=== PATIENT | female | born 1950 | race Caucasian/White ===

== ENCOUNTER → 2018-03-21 09:27 | Outpatient (CLI) | payer MEDICARE, OTHER, SELFPAY ==
[2018-03-21 10:24] LABS: Alanine Aminotransferase 23 IU/L (9-52); Albumin 4.2 g/dL (3.5-5.0); Albumin Globulin Ratio 1.8 (1.0-2.8); Alkaline Phosphatase 45 U/L (38-126); Aspartate Aminotransferase 18 IU/L (14-36); BUN Creatinine Ratio 28.3 (6-22); Bilirubin Total 0.3 mg/dL (0.2-1.3); Blood Urea Nitrogen 17 mg/dL (7-17); Calcium 9.8 mg/dL (8.4-10.2); Carbon Dioxide 34 mmol/L (22-32); Chloride 101 mmol/L (98-107); Estimated Glomerular Filt Rate > 60.0 mL/min (>60); Globulin 2.4 g/dL (1.7-4.1); Glucose 88 mg/dL (80-110); HEMOLYSIS < 15 (0-50); Phosphorous 3.8 mg/dL (2.8-4.1); Potassium 4.5 mmol/L (3.4-5.1); Sodium 141 mmol/L (137-145); Total Protein 6.6 g/dL (6.3-8.2)
== END ==
PROVIDERS: Family Provider Family Medicine; PCP Family Medicine; Visit Provider Internal Medicine
DX: E83.49 Other disorders of magnesium metabolism (principal); Z51.81 Encounter for therapeutic drug level monitoring
CPT/HCPCS: 36415; 80053; 83735; 84100

== ENCOUNTER → 2018-03-29 08:50 | Outpatient (CLI) | payer MEDICARE, OTHER, SELFPAY ==
--- NOTE | 2018-03-29 08:54 | DI.RAD.S_ITS ---
PROCEDURE: XR HIP W PEL IF DONE RT 2V INDICATIONS: Unspecified fall TECHNIQUE: AP pelvis with lateral view(s) of the right hip(s). COMPARISON: None. FINDINGS: Bones: No fractures or dislocations but there is moderately severe degenerative joint osteoarthritis on the right and only minimal such degeneration of the left. Pelvic ring appears intact. No suspicious bony lesions. Soft tissues: The visualized bowel gas pattern is normal. No suspicious soft tissue calcifications. IMPRESSION: Moderately severe right hip osteoarthritis, with near fyva-[id number]-[id number] articulation but only minimal degeneration is seen on the left. No acute trauma found. Dictated by: Godfrey Cameron M.D. on 03/29/2018 at 9:11 Approved by: Godfrey Cameron M.D. on 03/29/2018 at 9:13
== END ==
PROVIDERS: Family Provider Family Medicine; PCP Family Medicine; Visit Provider Physician Assistant
DX: M16.11 Unilateral primary osteoarthritis, right hip (principal)
CPT/HCPCS: 73502

== ENCOUNTER → 2018-05-04 10:03 | Outpatient (CLI) | payer MEDICARE, OTHER, SELFPAY ==
[2018-05-04 10:25] LABS: RBC Urine None Seen (0-5/HPF)
[2018-05-04 11:24] LABS: Add Manual Diff / Slide Review NO; Basophils Percent Auto 1.3 % (0-2); Eosinophils Percent Auto 3.1 % (2-4); Hematocrit 39.1 % (36-46); Hemoglobin 13.2 g/dL (12.0-16.0); Lymphocytes Percent Auto 18.4 % (25-40); Mean Corpuscular HGB Conc 33.9 % (30-36); Mean Corpuscular Hemoglobin 30.8 PG (26-34); Mean Corpuscular Volume 90.9 fL (80-100); Neutrophils Absolute Auto 3800 /uL (3000-5900); Neutrophils Percent Auto 69.2 % (50-75); Platelet Count 198 X10^3/uL (150-400); Red Blood Cell Count 4.29 X10^6/uL (4.0-5.2); Red Cell Distribution Width 12.5 % (11.6-14.8); White Blood Cell Count 5.5 X10^3/uL (4.5-11.0)
[2018-05-04 11:32] LABS: Hemoglobin A1C% w Est Avg Glu 5.2 % (4.0-6.0)
[2018-05-04 11:34] LABS: Appearance Urine UA CLEAR; Bilirubin Urine UA NEGATIVE (NEGATIVE); Color Urine UA YELLOW; Glucose Urine UA NEGATIVE (Normal); Ketones Urine UA NEGATIVE (NEGATIVE); Leukocyte Esterase Urine UA 1+ (NEGATIVE); Nitrite Urine UA Negative (Negative); Occult Blood Urine UA NEGATIVE (Negative); Protein Urine UA NEGATIVE (Negative); Urobilinogen Urine UA 0.2 E.U./dL (0.2); pH Urine UA 6.5 (4.5-8.0)
[2018-05-04 11:42] LABS: BUN Creatinine Ratio 17.1 (6-22); Blood Urea Nitrogen 12 mg/dL (7-17); Calcium 9.4 mg/dL (8.4-10.2); Carbon Dioxide 33 mmol/L (22-32); Chloride 102 mmol/L (98-107); Estimated Glomerular Filt Rate > 60.0 mL/min (>60); Glucose 79 mg/dL (80-110); HEMOLYSIS < 15 (0-50); Potassium 3.9 mmol/L (3.4-5.1); Sodium 144 mmol/L (137-145)
[2018-05-04 12:02] LABS: Bacteria Urine Many (>30); Squamous Epithelial Cell Urine 1-5 /HPF; WBC Urine 30-100/HPF (0-5/HPF)
[2018-05-04 12:03] LABS: Culture Indicated Urine Specimen Cultured; Mucus Urine 1+ (Negative)
== END ==
PROVIDERS: PCP Family Medicine; Visit Provider Orthopaedic Surgery
DX: Z01.818 Encounter for other preprocedural examination (principal); Z01.812 Encounter for preprocedural laboratory examination; N39.0 Urinary tract infection, site not specified; R73.09 Other abnormal glucose; I10 Essential (primary) hypertension
CPT/HCPCS: 36415; 80048; 81001; 83036; 85025; 87077; 87086; 87186; 93005; 93010

== ENCOUNTER 2018-06-08 05:42 | Inpatient (IN) | payer MEDICARE, OTHER, SELFPAY ==
[2018-05-25 10:46] VITALS: BMI 20.1
[2018-06-08] VITALS (15 sets, daily range): BP systolic 99–142; BP diastolic 43–79; PULSE 71–104; RESP 14–18; TEMP 35.9–37; O2SAT 99–100; BMI 20.1
--- NOTE | 2018-06-08 | DI.RAD.S_ITS ---
PROCEDURE: XR HIP W PEL IF DONE RT 2V INDICATIONS: TOTAL RIGHT HIP TECHNIQUE: AP pelvis and lateral view of the right hip acquired. COMPARISON: [facility], CR, XR HIP W PEL IF DONE RT 2V, 03/29/2018, 8:34. [facility], CR, XR HIP RT 1V, 06/08/2018, 8:23. FINDINGS: Bones: Patient is status post right hip arthroplasty, with hardware components in expected positions. The hip joint appears congruent. The visualized bony structures appear intact. Soft tissues: Overlying postoperative changes are noted. No suspicious soft tissue densities. Pelvic phleboliths are incidentally noted. IMPRESSION: Normal postoperative examination. Dictated by: Hebert Hernandez M.D. on 06/08/2018 at 11:07 Approved by: Hebert Hernandez M.D. on 06/08/2018 at 11:07
--- NOTE | 2018-06-08 06:00 | DI.RAD.S_ITS ---
PROCEDURE: XR HIP RT 1V INDICATIONS: prosthesis placement FINDINGS: 1 limited intraoperative fluoroscopically stored images of the right hip was obtained for intraoperative hardware localization purposes. This image is not meant for diagnostic purposes. Intraoperative findings related to a total right hip arthroplasty are present. IMPRESSION: Intraoperative image obtained during the patient's total right hip arthroplasty. Dictated by: Florin Paris M.D. on 06/08/2018 at 10:26 Approved by: Florin Paris M.D. on 06/08/2018 at 10:27
[2018-06-08] MEDS: LACTATED RINGERS 1,000 ML 42 ML IV ×2 (06:50→11:52)
[2018-06-08] MEDS: VANCOMYCIN 1,000 MG/200 ML FROZ.PIGGY 200 MG IV (06:55)
[2018-06-08] MEDS: ACETAMINOPHEN 325 MG TABLET 975 MG PO ×3 (07:39→20:33)
[2018-06-08] MEDS: MELOXICAM 7.5 MG TABLET 15 MG PO (07:40)
[2018-06-08] MEDS: PREGABALIN 75 MG CAPSULE PO (07:40)
--- NOTE | 2018-06-08 07:51 | PM.PREOP ---
Pre-operative Note Interval Note Pre-op Check: Yes History & Physical Reviewed by Physician Changes: No
--- NOTE | 2018-06-08 07:52 | PM.OP.1 ---
Operative Date/Time/Diagnoses Date of procedure: 06/08/18 Time of procedure: 09:52 Pre-op diagnosis: right hip OA Post-op diagnosis: same Procedure & Clinicians Procedure: right total hip arthroplasty Same procedure as scheduled: Yes Indications: The patient has had progressively worsening right hip pain with radiographic changes consistent with arthritis. Non-operative management has failed and the patient has requested total hip replacement. The risks, benefits and alternatives to surgery were discussed with the patient prior to proceeding. Risks discussed included, but were not limited to, failure to relieve pain, leg length discrepancy, dislocation, stiffness, infection, nerve damage, deep venous thrombosis, pulmonary embolism, stroke, coma, heart attack, permanent paralysis and , as well as the potential need for eventual revision of the prosthetic. Surgeon: Keily Garcia [employer] Technician: Godfrey Stein Click Yes if Unassisted: No Anesthesia Type: General and Spinal Operative Notes Findings: severe right hip OA, adequate stability Closure Type: primary Specimen(s): none sent Implants & Drains: A [employer] R3 52 cup R3, -3 x36 head, 36 x 52 neutral poly liner, anthology size 6 standard offset, 1 screw x 20mm Applied: catheter Estimated Blood Loss (mL): 250 Blood products transfused: none Procedure in detail: The patient was brought to the operating room. Patient was carefully positioned in the supine position. Time-out was performed and antibiotics were given. Anesthesia was induced. She was positioned in the on the table in order to allow hyperextension of the hip. Bilateral lower extremities were prepped and draped in a standard sterile fashion. An anterior right hip incision was made 1 fingerbreadth lateral to the anterior superior iliac spine and extended distally towards the greater trochanter. Dissection was carried out through skin and subcutaneous tissues. The skin and subcutaneous tissues were carefully injected with Lidocaine with epi. Superficial hemostasis was achieved. The fascia over the tensor fascia barry was defined and incised with a knife. Two Allis clamps were used to grasp the fascia. Tensor fascia barry was retracted laterally. A gelpi retractor was placed. Dissection was carried out down along the neck. The circumflex vessels were carefully identified and cauterized with the Aqua Mantis. There was good visualization of the femoral neck. A Cobra was placed superior to the neck and the gluteus fibers were carefully stripped from that superior aspect of the capsule. A 2nd retractor was placed along the inferior aspect of the neck. The rectus insertion along the capsule was partially released. A 3rd retractor that was then gently placed over the rim of the acetabulum under the rectus. Capsule was carefully incised and released from the intertrochanteric line circumferentially superior to the mid sagittal line and inferiorly to the mid sagittal line until the lesser trochanter was palpable. A tag stitch was placed both in the superior and inferior limb of the capsular insertion. Along the acetabulum capsule was also released up to the mid sagittal 12:00 position. A portion of the labrum was resected. A saw was used to perform an osteotomy at the level of the intertrochanteric line and the junction of the superior femoral neck leaving approximately 1 finger breath of residual inferior neck above the lesser trochanter. A 2nd cut was made along the femoral neck at the base of the head and a napkin ring of neck was removed. Corkscrew was placed in the femoral head and the head was removed without difficulty. Retractors were then repositioned around the acetabulum. Residual labrum was resected and additional osteophytes were removed. A reamer that was 4 mm below the templated size was placed by hand in the acetabulum and it was reamed to centralize the acetabulum. It was then reamed up to 2 under the templated size and fluoroscopy was brought in to confirm the position of the reaming and depth of reaming. I reamed 1 under the anticipated size and touched the rim with line to line reaming. A trial cup was placed and noted that it was appropriately sized and fluoroscopy confirmed position and depth. The component was open and inserted without difficulty fluoroscopic imaging was used to confirm that the cup had been adequately seated and was well positioned. A single screw was placed for additional acetabular stability. Neutral poly trial liner was placed. The cup was tested and noted to be stable. Attention was then directed to the femur. The femur was gently hyperextended additional capsular release was performed as needed in order to allow adequate visualization of the proximal femur with elevation of the femur. Patient was placed in a hyperextended slightly abducted position with maximum external rotation. Box osteotome was used to check for any residual neck as well as sclerotic bone along the trochanter. Milano pepper was placed in the femur. Additional broaching was performed. Canal finder was used to determine the alignment of the canal and position. Size 1 broach was placed. The canal was then appropriately broached up to the templated size as long as there was adequate stability of the broach and serial advancement of the broach without excessive impingement. Specific attention was directed at avoiding varus attempting to direct the distal aspect of the broach more anteriorly and avoiding excessive anteversion. Trial reduction showed acceptable range of motion, good stability, no posterior impingement, bahai of leg length and appropriate lateral shuck. I also hyperflexed the hip and checked that there was no impingement anteriorly and there was good stability with flexion, abduction and internal rotation. Final neutral poly was placed without difficulty. Marcaine and Exparel were injected.. The stem was placed without difficulty. Repeat trial reduction and x-ray showed acceptable overall position, length, and no evidence of the femoral fracture. Final head was placed. Wound was meticulously irrigated with normal saline. The hip was reduced and additional Exparel and Marcaine were injected. The capsule was closed with interrupted nonabsorbable sutures. The fascia of the tensor was closed with interrupted and running Vicryl. No drain was placed. Any tensor fascia barry muscle that appeared to be contused or injured which was a minimal amount was carefully resected. Capsule around the tensor was injected with Exparel and Marcaine. The skin was closed with barbed stitches for the subcutaneous tissue and skin. We also used surgical glue. The wound was dressed sterilely. Brief Betadine soak was also used and was meticulously irrigated with normal saline. Patient was transferred to recovery room in satisfactory condition. Complications: none Condition: stable Disposition: Acute Care Plan for aftercare: The patient will be maintained on a standard total hip replacement protocol with weight bearing as tolerated and anterior hip precautions. The patient will receive Aspirin and sequential compression devices for DVT prophylaxis. The patient will be discharged home when safe for the home environment.
[2018-06-08] MEDS: CEFAZOLIN 2 GM/100 ML FROZ.PIGGY IV ×3 (08:10→23:32)
--- NOTE | 2018-06-08 08:49 | SUR.OPER ---
Supine, head on pillow, torso on pink pad positioner. Iliac crest at flex of foot end of table. Gel roll under operative hip. Both arms secured on arm boards <90 degrees abduction.
[2018-06-08] MEDS: BUPIVACAINE LIPOSOME 266 MG/20 ML VIAL INJ (09:01)
[2018-06-08] MEDS: BUPIVACAINE 0.25% W/ EPI VIAL 50 ML INJ (09:01)
[2018-06-08] MEDS: POVIDONE-IODINE 15 ML, SODIUM CHLORIDE 0.9% 250 ML TOP (09:02)
[2018-06-08] MEDS: LIDOCAINE 1% W/EPI INJ 15 ML INJ (09:07)
--- NOTE | 2018-06-08 12:03 | SUR.PHASEI ---
pt transfered to icu as floor care pt in stable condition. pt alert and talking to rn. pt family at bedside upon arrival to room. bedside report given to BENITO Mark. Transfered care of pt to Benito Mark at that time.
[2018-06-08] MEDS: LACTATED RINGERS 1,000 ML 125 ML IV ×2 (13:19→22:27)
[2018-06-08] MEDS: OXYCODONE IR 5 MG TABLET PO (14:32)
--- NOTE | 2018-06-08 14:35 | PC.ADMIT ---
[id number] [place] [address] Admission Note: The patient,Jacinta Arteaga,68 y/o, was given written information regarding hospital policies, unit procedures and contact persons. Patient's smoking status: Never smoker. Vital Signs - 8 hr 06/08/18 07:00 06/08/18 11:20 06/08/18 11:25 Temperature 98.2 F 97.8 F Pulse Rate 71 84 89 Respiratory Rate 16 17 18 Blood Pressure 139/75 104/67 110/57 L Pulse Oximetry 99 99 100 06/08/18 11:30 06/08/18 11:35 06/08/18 11:40 Temperature 97.1 F L Pulse Rate 79 75 78 Respiratory Rate 15 14 14 Blood Pressure 110/57 L 106/60 106/66 Pulse Oximetry 100 100 100 06/08/18 11:45 06/08/18 11:50 06/08/18 12:08 Temperature 97.4 F L 97.4 F L 96.6 F L Pulse Rate 73 72 78 Respiratory Rate 14 17 14 Blood Pressure 111/64 111/60 121/49 L Pulse Oximetry 100 100 100 06/08/18 12:09 06/08/18 12:44 06/08/18 13:13 Temperature 96.6 F L 97.6 F Pulse Rate 73 90 104 H Respiratory Rate 14 16 16 Blood Pressure 109/43 L 123/68 133/71 Pulse Oximetry 100 100 100 06/08/18 14:19 Temperature Pulse Rate 81 Respiratory Rate 18 Blood Pressure 142/79 H Pulse Oximetry 100 Rec'd pt from PACU to rm 102 at 1200. Pt is AAO x3 and making needs known. R hip dsg CDI. Denies pain. VSS. Oriented to room, unit, routine. Educated to fall risk, pain med regimen, use of call light. Family at bedside.
--- NOTE | 2018-06-08 16:04 | PT.IIE ---
Addendum entered and electronically signed by oMntse Wayne PT 06/08/18 18:12: This is to certify that I have reviewed this documentation and POC Original Note: Current Diagnoses Unilateral primary osteoarthritis, right hip (06/08/18) Surgery Performed Operation Date: 06/08/18 07:45 Actual Procedures p Right Total Hip Arthroplasty-Anterior Approach(Right) - Keily Garcia MD Surgical History (Last Updated 05/25/18 @ 11:17 by Nilsa Guerra RN) History of total abdominal hysterectomy and bilateral salpingo-oophorectomy (Acute) Hx of eye surgery (Acute) Status post extracapsular cataract extraction of left eye (Acute) History of surgery on arm (Resolved 09/2016) Hx of cornea transplant (Resolved 2001) History of lumpectomy Status post knee surgery Medical History (Last Updated 05/25/18 @ 11:13 by Nilsa Guerra RN) Normal colonoscopy (Acute) Osteoporosis (Acute) Seasonal allergies (Acute) Allergic rhinitis (Chronic) 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 Prior Functional Level (Other details) pt was previously independent in all mobilities and no AD. Social History Household Members none Living Arrangements House Number of Floors (Floors) One Floor Number of Stairs To Enter/Railing? 1 step with grab bar on L ascending to access through the garage. pt also states having 3 steps to enter front door but states she will not attempt those due to some safety concerns. Home Environment Walk in Shower Home Equipment Front Wheel Walker Straight Cane Raised Toilet Seat w/Armrests Shower Seat without Backrest Grab Bars In Shower Employment Status Retired Additional Social History Comment pt plans to go home with her mom and her friend marilia the first night (plan is tomorrow) home. Then her brother will be attending her for 2-3 nights, then she has arranged to have friends and neighbors come in/out. She states that she will have someone there 24hrs/day. M2 PT-IP Current Condition Start: 06/08/18 16:44 Freq: NEEDED Status: Active Protocol: Document 06/08/18 16:04 (Rec: 06/08/18 18:11 [email or web address]) Physical Therapy Current Condition Current Condition Evaluation Date 06/08/18 Treatment Diagnosis R DANIKA (anterior approach); Difficulty walking Onset Date 06/08/18 Precautions Anterior Hip Precautions No Hip Extension No Hip External Rotation Weight Bearing Status Weight Bearing Status Weight Bear as Tolerated M3 PT-IP Subjective Start: 06/08/18 16:44 Freq: NEEDED Status: Active Protocol: Document 06/08/18 16:04 (Rec: 06/08/18 18:11 [email or web address]) Subjective Physical Therapy Visit Type Type Initial Evaluation Visit Start Time 16:04 Visit Stop Time 16:37 Total Visit Minutes 33 Number of COPYRIGHT MANAGER Visits 0 Physical Therapy Visit Comments Patient Comments pt states having no pain at this time and is agreeable to attempt ambulating with PT. Therapy Pain Assessment Pain When Pain Assessed At Rest Pain Present Pain Present Denied Pain M4 PT-IP Mobility and Gait Start: 06/08/18 16:44 Freq: NEEDED Status: Active Protocol: Document 06/08/18 16:04 (Rec: 06/08/18 18:11 [email or web address]) PT-Bed Mobility Assessment Supine to Sit Supine to Sit Standby Assistance Scooting Scooting to Edge of Bed Standby Assistance PT-Transfer Assessment Sit to and From Stand Sit to and from Stand Contact Guard Assistance Use of Upper Extremities Equipment Transfer Assistive Device Gait Belt Front Wheeled Walker Orthotic/Prosthetic Devices or Brace: No Transfers Transfer Destination Chair Comments Mobility Comments BP 121/71 at rest prior to mobilizing. Pt had some confusion regarding her precautions and required review of specific precautions for anterior approach DANIKA. During sit <> stand required min cues for hand placement. Gait Assessment Gait Gait Assistance Required: Contact Guard Assist Distance (Feet) 15 Able to Maintain Weight Bearing Status Yes During Gait Assistive Devices Assistive Device Gait Belt Front Wheeled Walker Orthotic/Prosthetic Devices or Brace: No Gait Deviations General Gait Pattern Antalgic Decreased Stride Length Decreased Feet Clearance Narrow Based Gait Factors Limiting Gait Function Factors Limiting Gait Function Decreased Activity Tolerance Decreased Strength Limited Range of Motion Pain Poor Balance Poor Safety Awareness Comments Gait Comments Pt ambulated 15 ft in room with fww and CGA. She was able to maintain a step-to gait pattern leading with RLE. C/o nausea after ambulation with +emesis. RN was alerted and aware of situation. BP prior was 121/71 at rest in supine. Post ambulation was 105/44. PT-Balance Assessment Sitting Balance and Reactions Static Sitting Balance Ability Good Dynamic Sitting Balance Ability Good Standing Balance and Reactions Static Standing Balance Ability Fair Dynamic Standing Balance Ability Fair Device Used fww M5 PT-IP Objective Assessments Start: 06/08/18 16:44 Freq: NEEDED Status: Active Protocol: Document 06/08/18 16:04 (Rec: 06/08/18 18:11 [email or web address]) Orientation Orientation/Cognition Level of Alertness Alert Orientation Name Birthday Place Situation Safety Awareness Decreased Safety Awareness Gross Range of Motion Lower Extremity ROM Assessment Right Impaired Strength Lower Extremity Strength Assessment Right Impaired Comments Strength Comments RLE 3+/5; LLE WNL Sensation Assessment Sensation Gross Sensation WNL M6 PT-IP Treatment Start: 06/08/18 16:44 Freq: NEEDED Status: Active Protocol: Document 06/08/18 16:04 (Rec: 06/08/18 18:11 [email or web address]) Physical Therapy Treatment Education Education Provided Precautions Weight Bearing Status Post-Op Packet Safety M7 PT-IP Assessment and Plan Start: 06/08/18 16:44 Freq: NEEDED Status: Active Protocol: Document 06/08/18 16:04 (Rec: 06/08/18 18:11 [email or web address]) PT Summary Assessment and Plan Potential Rehabilitation Potential Good Status of Condition at Evaluation Stable Summary Impairments Pain ROM Strength Balance Coordination Bed Mobility Transfers Gait Activity Tolerance Progress Towards Goals Progressing Toward Goals Assessment Summary pt s/p R DANIKA and difficulty with gait. Pt was able to amb 15 ft with fww and CGA. This was however, poorly tolerated as the pt felt suddenly nauseus and vomited post amb. Pt will likely improve with mobility and plan is for pt to d/c home when medically stable and also depending on pt's progress with mobility. Goals Bed Mobility Goal Independent Transfer Goal Standby Assistance Gait Goal Standby Assistance Gait Distance 150 Other Goals Pt will complete 1 platform step up/down SBA as needed for safe entry to home. Days to Meet Goals 3 Frequency of Treatment Frequency Of Treatment Twice a Day Treatment Plan Physical Therapy Treatment Plan Bed Mobility Training Transfer Training Gait Training Therapeutic Exercise Balance Retraining Post Op Education Discharge Planning Hot or Cold Pack Neuromuscular Re-ed Coordination Retraining Other Recommendations and Next Treatment Progress gait training as Focus tolerated. Begin stair climbing if ambulation is tolerated well. Recommendations To Nursing Amount of Assist Needed 1 Person Assist Discharge Recommendations PT Discharge Recommendations Home with 21/03 Assist Outpatient PT
[2018-06-08] MEDS: ONDANSETRON 4 MG/2 ML INJ IV (16:37)
[2018-06-08] MEDS: ASPIRIN EC 81 MG TABLET PO (20:34)
[2018-06-08] MEDS: DOCUSATE 100 MG CAPSULE PO (20:34)
[2018-06-09 00:15] VITALS: BP 127/80; PULSE 79; RESP 16; TEMP 36.7; O2SAT 98
[2018-06-09] MEDS: OXYCODONE IR 5 MG TABLET PO ×2 (03:23→20:43)
[2018-06-09] MEDS: IBUPROFEN 600 MG TABLET PO (04:04)
[2018-06-09 05:19] LABS: Hematocrit 22.7 % (36-46); Hemoglobin 7.8 g/dL (12.0-16.0)
[2018-06-09] MEDS: ACETAMINOPHEN 325 MG TABLET 975 MG PO ×3 (08:15→20:42)
[2018-06-09] MEDS: DOCUSATE 100 MG CAPSULE PO ×2 (08:16→20:42)
[2018-06-09] MEDS: SODIUM CHLORIDE 0.9% FLUSH 10 ML IV ×2 (08:16→20:44)
[2018-06-09] MEDS: ASPIRIN EC 81 MG TABLET PO ×2 (08:16→20:43)
[2018-06-09 08:26] VITALS: BP 95/43; PULSE 80; RESP 14; TEMP 37.7; O2SAT 98
--- NOTE | 2018-06-09 08:50 | PT.IPTN ---
Current Diagnoses Acute posthemorrhagic anemia (06/08/18) Unilateral primary osteoarthritis, right hip (06/08/18) Surgery Performed Operation Date: 06/08/18 07:45 Actual Procedures p Right Total Hip Arthroplasty-Anterior Approach(Right) - Keily aGrcia MD Physical Therapy Treatment Note M2 PT-IP Current Condition Start: 06/08/18 16:44 Freq: NEEDED Status: Active Protocol: Document 06/08/18 16:04 (Rec: 06/08/18 18:11 [email or web address]) Physical Therapy Current Condition Current Condition Evaluation Date 06/08/18 Treatment Diagnosis R DANIKA (anterior approach); Difficulty walking Onset Date 06/08/18 Precautions Anterior Hip Precautions No Hip Extension No Hip External Rotation Weight Bearing Status Weight Bearing Status Weight Bear as Tolerated M3 PT-IP Subjective Start: 06/08/18 16:44 Freq: NEEDED Status: Active Protocol: Document 06/09/18 08:50 GGD (Rec: 06/09/18 11:35 GGD [id number]) Subjective Physical Therapy Visit Type Type Treatment Note Visit Start Time 08:25 Visit Stop Time 08:50 Total Visit Minutes 25 Number of GRAPHITE DISK ASSEMBLER Visits 1 Physical Therapy Visit Comments Patient Comments Pt state she had pain over night, but feeling better today. Therapy Pain Assessment Pain When Pain Assessed At Rest Pain Present Pain Present Denied Pain Location Right Hip Intensity 3 Scale Used Numeric (1 - 10) Description Dull Pain Management Techniques Timing of Activity with Medications M4 PT-IP Mobility and Gait Start: 06/08/18 16:44 Freq: NEEDED Status: Active Protocol: Document 06/09/18 08:50 GGD (Rec: 06/09/18 11:35 GGD [id number]) PT-Transfer Assessment Sit to and From Stand Sit to and from Stand Contact Guard Assistance Use of Upper Extremities Equipment Transfer Assistive Device Gait Belt Front Wheeled Walker Orthotic/Prosthetic Devices or Brace: No Transfers Transfer Destination Chair Gait Assessment Gait Gait Assistance Required: Contact Guard Assist Distance (Feet) 100 Able to Maintain Weight Bearing Status Yes During Gait Assistive Devices Assistive Device Gait Belt Front Wheeled Walker Orthotic/Prosthetic Devices or Brace: No Gait Deviations General Gait Pattern Antalgic Decreased Stride Length Decreased Feet Clearance Step-to Gait Factors Limiting Gait Function Factors Limiting Gait Function Decreased Activity Tolerance Decreased Strength Limited Range of Motion Pain Poor Balance Stair Climbing Assessment Evaluation Level of Assist On Stairs Contact Guard Assistance Devices Stair Climbing Assistive Devices Left Railing Technique/Endurance Stair Climbing Direction Ascend and Descend Stair Climbing Technique Step to Step Number of Steps Climbed 1 Query Text: Stair Climbing Set # Repetitions (reps) 1 Comments Stair Climbing Comments Pt need min cues for stair mobility. M5 PT-IP Objective Assessments Start: 06/08/18 16:44 Freq: NEEDED Status: Active Protocol: Document 06/08/18 16:04 (Rec: 06/08/18 18:11 [email or web address]) Orientation Orientation/Cognition Level of Alertness Alert Orientation Name Birthday Place Situation Safety Awareness Decreased Safety Awareness Gross Range of Motion Lower Extremity ROM Assessment Right Impaired Strength Lower Extremity Strength Assessment Right Impaired Comments Strength Comments RLE 3+/5; LLE WNL Sensation Assessment Sensation Gross Sensation WNL M6 PT-IP Treatment Start: 06/08/18 16:44 Freq: NEEDED Status: Active Protocol: Document 06/09/18 08:50 GGD (Rec: 06/09/18 11:35 GGD [id number]) Physical Therapy Treatment Exercises Exercises Ankle Pumps Gluteal Sets Education Education Provided Precautions Safety M7 PT-IP Assessment and Plan Start: 06/08/18 16:44 Freq: NEEDED Status: Active Protocol: Document 06/09/18 08:50 GGD (Rec: 06/09/18 11:35 GGD [id number]) PT Summary Assessment and Plan Summary Assessment Summary Pt improving with mobility. She was able to progress her gait. She did need cues for step to gait pattern with FWW and for stair mobility. She safe for home D/C when medically stable. Frequency of Treatment Frequency Of Treatment Twice a Day Treatment Plan Other Recommendations and Next Treatment Progress gait training as Focus tolerated. Review bed mobility . Recommendations To Nursing Amount of Assist Needed 1 Person Assist Discharge Recommendations PT Discharge Recommendations Home with 21/03 Assist Outpatient PT
[2018-06-09] MEDS: FERROUS GLUCONATE 324 MG TABLET PO ×2 (11:27→20:42)
--- NOTE | 2018-06-09 11:28 | PM.PNPO.1 ---
Subjective Date Patient Seen: 06/09/18 Time Patient Seen: 11:11 Interval history: Patient seen bedside s/p R. anterior DANIKA POD #1. Patient tolerated the procedure well with no major complications. Her hemoglobin did drop from 11.5 in January to 7.8 post-operatively. She is currently asymptomatic and her pain is well controlled. Exam Vital Signs (past 8 hours): - 06/09/18 08:26 Temperature 99.8 F H Pulse Rate 80 Respiratory Rate 14 Blood Pressure 95/43 L Pulse Oximetry 98 Oxygen Delivery Method Room Air Oxygen Flow Rate 0 Narrative Exam Narrative: WDWN NAD A&Ox3. Dressing CDI, NVI in RLE, calf is soft and compressible. Objective Labs Result Diagrams: 06/09/18 04:56 Labs: Laboratory Results - last 24 hr 06/08/18 06/09/18 12:15 04:56 Hgb 7.8 L Hct 22.7 L Nasal Screen MRSA (PCR) Negative for mrsa Assessment & Plan Post-op (1) Acute blood loss as cause of postoperative anemia: Current Visit: Yes Status: Acute (2) Osteoarthritis of right hip: Current Visit: Yes Status: Acute Postoperative Procedures Operation Date: 06/08/18 07:45 Actual Procedures Side Surgeon p Right Total Hip Arthroplasty-Anterior Approach Right Keily Garcia MD 1. Continue PT, ambulation, pain control. 2. For anemia, add ferrous sulfate and vitamin C. Recheck h/h in AM. 3. Possible d/c home tomorrow Quality VTE Deep Vein Thrombosis/Pulmonary Embolism Present on Admission: No
--- NOTE | 2018-06-09 12:25 | PC.NURSE ---
Pt ambulating with PT, no reports of dizziness or pain.States it just feels still.Declined pain meds so far this shift.Aquacel dressing CDI to right hip.Plan to stay one more day b/of hypertension and low H/H - recheck in am. Pt continues to have poor appetite but is drinking and voiding well.
--- NOTE | 2018-06-09 14:15 | PT.IPTN ---
Current Diagnoses Acute posthemorrhagic anemia (06/08/18) Unilateral primary osteoarthritis, right hip (06/08/18) Surgery Performed Operation Date: 06/08/18 07:45 Actual Procedures p Right Total Hip Arthroplasty-Anterior Approach(Right) - Keily Garcia MD Physical Therapy Treatment Note M2 PT-IP Current Condition Start: 06/08/18 16:44 Freq: NEEDED Status: Active Protocol: Document 06/08/18 16:04 (Rec: 06/08/18 18:11 [email or web address]) Physical Therapy Current Condition Current Condition Evaluation Date 06/08/18 Treatment Diagnosis R DANIKA (anterior approach); Difficulty walking Onset Date 06/08/18 Precautions Anterior Hip Precautions No Hip Extension No Hip External Rotation Weight Bearing Status Weight Bearing Status Weight Bear as Tolerated M3 PT-IP Subjective Start: 06/08/18 16:44 Freq: NEEDED Status: Active Protocol: Document 06/09/18 14:15 GGD (Rec: 06/09/18 14:57 GGD [id number]) Subjective Physical Therapy Visit Type Type Treatment Note Visit Start Time 13:50 Visit Stop Time 14:15 Total Visit Minutes 25 Number of TELEVISION CABLE INSTALLER Visits 2 Physical Therapy Visit Comments Patient Comments Pt states that she would like to walk. Therapy Pain Assessment Pain When Pain Assessed At Rest Pain Present Pain Present Denied Pain Location Right Hip Description Dull M4 PT-IP Mobility and Gait Start: 06/08/18 16:44 Freq: NEEDED Status: Active Protocol: Document 06/09/18 14:15 GGD (Rec: 06/09/18 14:57 GGD [id number]) PT-Bed Mobility Assessment Supine to Sit Supine to Sit Standby Assistance Scooting Scooting to Edge of Bed Independent PT-Transfer Assessment Sit to and From Stand Sit to and from Stand Contact Guard Assistance Use of Upper Extremities Equipment Transfer Assistive Device Gait Belt Front Wheeled Walker Orthotic/Prosthetic Devices or Brace: No Transfers Transfer Destination Chair Gait Assessment Gait Gait Assistance Required: Contact Guard Assist Distance (Feet) 150 Able to Maintain Weight Bearing Status Yes During Gait Assistive Devices Assistive Device Gait Belt Front Wheeled Walker Orthotic/Prosthetic Devices or Brace: No Gait Deviations General Gait Pattern Antalgic Decreased Stride Length Decreased Feet Clearance Step-to Gait Factors Limiting Gait Function Factors Limiting Gait Function Decreased Activity Tolerance Decreased Strength Limited Range of Motion Pain Poor Balance Comments Gait Comments Cues for gait pattern and hip precautions M5 PT-IP Objective Assessments Start: 06/08/18 16:44 Freq: NEEDED Status: Active Protocol: Document 06/08/18 16:04 (Rec: 06/08/18 18:11 [email or web address]) Orientation Orientation/Cognition Level of Alertness Alert Orientation Name Birthday Place Situation Safety Awareness Decreased Safety Awareness Gross Range of Motion Lower Extremity ROM Assessment Right Impaired Strength Lower Extremity Strength Assessment Right Impaired Comments Strength Comments RLE 3+/5; LLE WNL Sensation Assessment Sensation Gross Sensation WNL M6 PT-IP Treatment Start: 06/08/18 16:44 Freq: NEEDED Status: Active Protocol: Document 06/09/18 14:15 GGD (Rec: 06/09/18 14:57 GGD [id number]) Physical Therapy Treatment Exercises Exercises Ankle Pumps Gluteal Sets Quad Sets Seated Knee Flexion/Extension Education Education Provided Precautions Safety M7 PT-IP Assessment and Plan Start: 06/08/18 16:44 Freq: NEEDED Status: Active Protocol: Document 06/09/18 14:15 GGD (Rec: 06/09/18 14:57 GGD [id number]) PT Summary Assessment and Plan Summary Assessment Summary Pt improving with mobility. She had no dizziness with mobility. She need cues for hip precautions wiht gait. She had no unsteadiness or LOB with gait with FWW. Frequency of Treatment Frequency Of Treatment Twice a Day Treatment Plan Other Recommendations and Next Treatment Progress gait training as Focus tolerated. Review bed mobility . Recommendations To Nursing Amount of Assist Needed 1 Person Assist Discharge Recommendations PT Discharge Recommendations Home with 21/03 Assist Outpatient PT
[2018-06-09 15:30] VITALS: BP 125/56; PULSE 89; RESP 16; TEMP 37.6; O2SAT 98
--- NOTE | 2018-06-09 16:24 | PC.NURSE ---
Pt transferred to acute care unit, report given to Chanell IGLL. Pt in no acute distress. Dressing to R hip CDI.
[2018-06-09 16:30] VITALS: BP 113/59; PULSE 86; RESP 17; TEMP 37.2; O2SAT 99
[2018-06-09 17:29] VITALS: PULSE 91; RESP 12; O2SAT 98
[2018-06-09] MEDS: ASCORBIC ACID 500 MG TABLET PO (20:44)
[2018-06-09 21:39] VITALS: BP 117/56; PULSE 90; RESP 20; TEMP 36.8; O2SAT 99
--- NOTE | 2018-06-09 22:48 | PC.NURSE ---
TRANSFER Received pt at approximately 1630 via wheelchair and NEEDLE STRAIGHTENER escort. R hip with aqaucel dressing CDI. CMS intact. c/o minimal pain, 11/05. pt minimum/SBA with ambulation. oriented to room. call light within reach.
[2018-06-10 00:17] VITALS: BP 87/48; BP 93/44; PULSE 95; RESP 16; TEMP 36.9; O2SAT 100
[2018-06-10 03:32] VITALS: BP 95/48; PULSE 92; RESP 16; TEMP 36.9; O2SAT 99
[2018-06-10 05:46] LABS: Hematocrit 21.6 % (36-46); Hemoglobin 7.4 g/dL (12.0-16.0)
[2018-06-10 08:55] VITALS: BP 107/60; PULSE 109; RESP 20; TEMP 36.9; O2SAT 99
--- NOTE | 2018-06-10 08:57 | PM.PNPO.1 ---
Subjective Date Patient Seen: 06/10/18 Time Patient Seen: 08:57 Interval history: Post op day 2 status post R total hip arthroplasty with Dr. Garcia on 06/08/18. Patient is sitting up in bed with no signs of distress. She denies any pain at this time. Her Hgb was dropped this morning to 7.4 and Hct 21.6. BP was also 95/48 at 3am. BP was rechecked and is now 106/60. She is currently asymptomatic at this time. She reports upon discharge her brother will be home to assist her. She denies any SOB, chest pain, nausea, vomiting, fever or chills. Exam Vital Signs (past 8 hours): - 06/10/18 03:32 Temperature 98.5 F Pulse Rate 92 H Respiratory Rate 16 Blood Pressure 95/48 L Pulse Oximetry 99 Oxygen Delivery Method Room Air Oxygen Flow Rate 0 Narrative Exam Narrative: Patient is a pleasant female in no acute distress. She is AOx3. Radial and dorsalis pedis pulses 2+ and symmetric. Muscle strength 5/5 in dorsiflexion, plantarflexion and electrical and radio mechanic bilaterally. Sensation to light touch intact in LE bilaterally. DVT compression devices noted on LE bilaterally. Calfs are soft, non tender and compressible bilaterally. R hip dressing CDI. Objective Labs Result Diagrams: 06/10/18 05:25 Labs: Laboratory Results - last 24 hr 06/10/18 05:25 Hgb 7.4 L Hct 21.6 L Assessment & Plan Post-op Postoperative Procedures Operation Date: 06/08/18 07:45 Actual Procedures Side Surgeon p Right Total Hip Arthroplasty-Anterior Approach Right Keily Garcia MD Postoperative day: 2 Postoperative plan: routine post-op care Postoperative plan narrative: Continue standard total hip replacement protocol with weight bearing as tolerated and anterior hip precautions with PT. Continue DVT prophylaxis. Re-check H&H tomorrow in AM. Patient likely to be discharged home tomorrow. Time Spent With Patient less than 15 minutes Quality VTE Deep Vein Thrombosis/Pulmonary Embolism Present on Admission: No
[2018-06-10] MEDS: FERROUS GLUCONATE 324 MG TABLET PO ×2 (09:25→20:52)
[2018-06-10] MEDS: DOCUSATE 100 MG CAPSULE PO ×2 (09:25→20:52)
[2018-06-10] MEDS: ASCORBIC ACID 500 MG TABLET PO ×2 (09:25→20:52)
[2018-06-10] MEDS: ASPIRIN EC 81 MG TABLET PO ×2 (09:25→20:52)
[2018-06-10] MEDS: ACETAMINOPHEN 325 MG TABLET 975 MG PO ×3 (09:26→20:52)
[2018-06-10] MEDS: SODIUM CHLORIDE 0.9% FLUSH 10 ML IV ×2 (09:27→20:53)
[2018-06-10] MEDS: ONDANSETRON 4 MG ODT PO (10:27)
--- NOTE | 2018-06-10 11:17 | PC.NURSE ---
Addendum entered by Alisia Pat R.N. 06/10/18 13:20: GI/MS - able to bites salad lunch, drinking fluids, ate pudding, assist up to dangle position, no dizziness, ambul to br w/void, ret bed w/call light available, states feeling better this afternoon, prefers to continue with tylenol for discomfort. Original Note: AM NOTE - awake, does state she feels tired, discussed H&H 7.4/21.6, bp earlier 95/48 and this am 107/60, hr 90's - 100's with [facility] ortho office, plan to recheck H&H in am, lissette nickg r hip cdi, pain 2 on scale 0/10, later am up to chair x 1 person w/fww, did have emesis approx 400ml mid am and given 4mg sl zofran, oral care provided, later when started to feel more woozy assisted back to bed, vitals checked and bp 121/67, p69, jaydon sips fluid, no addl nausea after zofran.
[2018-06-10 11:20] VITALS: BP 117/61; PULSE 94; RESP 16; TEMP 36.8; O2SAT 100
--- NOTE | 2018-06-10 12:04 | PT.IPTN ---
Current Diagnoses Acute posthemorrhagic anemia (06/08/18) Unilateral primary osteoarthritis, right hip (06/08/18) Surgery Performed Operation Date: 06/08/18 07:45 Actual Procedures p Right Total Hip Arthroplasty-Anterior Approach(Right) - Keily Garcia MD Physical Therapy Treatment Note M2 PT-IP Current Condition Start: 06/08/18 16:44 Freq: NEEDED Status: Active Protocol: Document 06/08/18 16:04 (Rec: 06/08/18 18:11 [email or web address]) Physical Therapy Current Condition Current Condition Evaluation Date 06/08/18 Treatment Diagnosis R DANIKA (anterior approach); Difficulty walking Onset Date 06/08/18 Precautions Anterior Hip Precautions No Hip Extension No Hip External Rotation Weight Bearing Status Weight Bearing Status Weight Bear as Tolerated M3 PT-IP Subjective Start: 06/08/18 16:44 Freq: NEEDED Status: Active Protocol: Document 06/10/18 12:03 GGD (Rec: 06/10/18 12:04 GGD [email or web address]) Subjective Physical Therapy Visit Type Type Patient Refusal Notes Pt refused states that she is very tired and is feeling woozy. Pt's Hgb decrease to 7 .4. Will see in PM Other Recommendations and Next Treatment Progress gait training as Focus tolerated. Review bed mobility . Recommendations To Nursing Amount of Assist Needed 1 Person Assist Discharge Recommendations PT Discharge Recommendations Home with 21/03 Assist Outpatient PT
--- NOTE | 2018-06-10 15:47 | PT.IPTN ---
Current Diagnoses Acute posthemorrhagic anemia (06/08/18) Unilateral primary osteoarthritis, right hip (06/08/18) Surgery Performed Operation Date: 06/08/18 07:45 Actual Procedures p Right Total Hip Arthroplasty-Anterior Approach(Right) - Keily Garcia MD Physical Therapy Treatment Note M2 PT-IP Current Condition Start: 06/08/18 16:44 Freq: NEEDED Status: Active Protocol: Document 06/08/18 16:04 (Rec: 06/08/18 18:11 [email or web address]) Physical Therapy Current Condition Current Condition Evaluation Date 06/08/18 Treatment Diagnosis R DANIKA (anterior approach); Difficulty walking Onset Date 06/08/18 Precautions Anterior Hip Precautions No Hip Extension No Hip External Rotation Weight Bearing Status Weight Bearing Status Weight Bear as Tolerated M3 PT-IP Subjective Start: 06/08/18 16:44 Freq: NEEDED Status: Active Protocol: Document 06/10/18 15:46 GGD (Rec: 06/10/18 15:47 GGD [email or web address]) Subjective Physical Therapy Visit Type Type Patient Refusal Notes Pt states she still not feeling good and she not been able to keep food down. Treatment Plan Other Recommendations and Next Treatment Progress gait training as Focus tolerated. Review bed mobility . Recommendations To Nursing Amount of Assist Needed 1 Person Assist Discharge Recommendations PT Discharge Recommendations Home with 24/ Assist Outpatient PT
[2018-06-10 16:10] VITALS: BP 104/58; PULSE 92; RESP 19; TEMP 36.9; O2SAT 100
--- NOTE | 2018-06-10 18:36 | PC.NURSE ---
Addendum entered by Nadine Robbins R.N. 06/10/18 22:26: Pt denied pain at 2100 tylenol, but still wanted as she doesn't want it to start hurting. Pt sleeping. brushed dentures and ambulates very well. uses walker appropriately. bed alarm on. will continue to monitor. Original Note: 1500- assumed care of pt. pt compliant with nursing assessments. chatty and cooperative. Pt states pain is very manageable at 2/10. denies need for any pain medication. pt got soup and crackers ordered for dinner. believes that miralax was the reason she threw up this am. Pt stated that she ate a huge breakfast and thinks that it was just too much and too heavy for her. as she usually has cereal or oatmeal at breakfast time. Pt has been drinking plenty of water. makes needs know, bed alarm on. calls appropriately. will continue to monitor pt for safety. bed alarm on, side rails up x3 will continue to monitor. belongings and call light within reach.
[2018-06-10 19:18] VITALS: BP 120/66; PULSE 88; RESP 16; TEMP 36.9; O2SAT 100
[2018-06-11 00:22] VITALS: BP 119/67; PULSE 85; RESP 16; TEMP 36.7; O2SAT 100
[2018-06-11 04:12] VITALS: BP 132/74; PULSE 85; RESP 15; TEMP 36.6; O2SAT 96
[2018-06-11 05:53] LABS: Hematocrit 21.1 % (36-46); Hemoglobin 7.1 g/dL (12.0-16.0)
[2018-06-11 07:40] VITALS: BP 119/58; PULSE 78; RESP 20; TEMP 36.6; O2SAT 100
[2018-06-11] MEDS: ACETAMINOPHEN 325 MG TABLET 975 MG PO (09:33)
[2018-06-11] MEDS: DOCUSATE 100 MG CAPSULE PO (09:33)
[2018-06-11] MEDS: FERROUS GLUCONATE 324 MG TABLET PO (09:33)
[2018-06-11] MEDS: ASCORBIC ACID 500 MG TABLET PO (09:33)
--- NOTE | 2018-06-11 09:33 | CM.DANOTE ---
DCP/Assessment: Reviewed chart. Patient is a 68yr old female admitted to [facility] for right DANIKA performed on 06-08-[address] Garcia. Primary payor is 1)Medicare 2)[facility]. PCP is Dr. Tello. Met with patient explained CM/SW role. Patient alert and oriented sitting in recliner at time of visit. Patient reports that she plans to d/c home today. Patient has all needed DME and has outpatient therapy scheduled in [place]. Patient evaluated by therapy and home with outpatient therapy recommended. Patient resides alone but has neighbor, family, and friend support. Patient does not anticipate any d/c planning needs. CYNTHIA signed by patient today at approximately 9:20AM. P: Home today. Discharge Planning/Care Management CM Discharge Assessment Start: 06/11/18 09:27 Freq: Status: Active Protocol: Document 06/11/18 09:28 KJS (Rec: 06/11/18 09:33 KJS [id number]) Discharge Planning Assessment Assigned Director Of Respiratory Therapy ANN Christopher Advance Directives? Yes Advance Directives on File Yes History Provided By Patient Family Member Has Patient been admitted in last 30 No days? Prior Living Arrangements House Household Members none Type of transporation used prior to Drives own vehicle admit Independent with ADL's Yes Is patient alert and oriented? Yes Caregiver for Another No DME Already Rented / Owned Bath Bench Elevated Toilet Seat FWW / Walker Cane Other Patient/Family Preference OP PT Therapy Barriers to Discharge No Discharge Plan Home Whiteboard Updated in Patient Room with Yes name and ext. # of Director Of Respiratory Therapy Review Status In Process Please Provide Date Initial DC 06/11/18 Assessment Was Performed Next Review Type Continued Stay Review Pre-Anesthesia Assessment Start: 05/25/18 10:46 Freq: Status: Complete Protocol: Document 05/25/18 10:46 CAB (Rec: 05/25/18 11:31 CAB [id number]) Pre-Anesthesia Assessment Patient Also Known As [place] (AKA) Patient Information Reviewed Via Phone Assessment Assessment Completed With Patient Lab Results BMP/CMP CBC EKG Urinalysis Primary Care Provider Ventura Caraballo Seen Specialist in Last 12 Months Yes Specialist Seen Orthopedist Primary Language Tajik Small Brake Form Operator Required No Height 157.48 cm Weight 49.895 kg Body Mass Index (BMI) 20.1 Hearing Ability Normal Visual Assist Glasses Dentition Type Full- Upper & Lower Barriers to Learning None Hx Anesthesia Reactions No Hx Family Anesthesia Reaction No Hx Malignant Hyperthermia No Hx Blood Transfusions No Anesthesia Review Requested No Social Media Campaign Manager No alcohol intake never Smoking Status Never smoker Substance Use Type does not use Pain Present Pain Reported Musculoskeletal Symptoms Abnormal Gait Difficulty Walking Joint Pain History of Falling (Recent or History of Yes ) Patient is completely paralyzed or No completely immobile Mental Status Oriented to own ability Is patient on oxygen? No Does patient have MCCABE/SOB No Hx Sleep Apnea No Suspected Sleep Apnea No Currently Taking a Beta Ileana No Can You Climb a Flight of Stairs Without Yes SOB Hx Chest Pain No Hx SOB No Hx Syncope or Dizziness No Anti-Coagulant Therapy No Has a Weaver Hand No Cardiac Testing No Hx Pacemaker/ICD No Pacemaker Rep Required? No Cardiac Clearance Received Not Applicable Diet Type At Home Regular dysphagia No Urinary Catheter Present No Hx Urinary Self Catheterization No Comment Current UTI, placed on abx per Surgeon's office will start x 8 days Diabetes No Patient No Lactating No Hx Drug Resistant Organism No Presence of External or Internal Medical No Devices Comment left eye lens Have you traveled outside the [facility] in the last 30 days? Marital Status / Lives With none Prior Living Arrangements House Number of Floors (Floors) One Floor Number of Stairs To Enter/Railing? 1 step from [employer] w/[employer] Support System Friend(s) Does the Patient Have Assistance After Yes: DOES NOT HAVE ANYONE Surgery AVAILABLE DURING THE NIGHTS Patient Discharge Plan Description Return Home Feels Safe in Current Environment Yes Been Physically Hurt or Threatened By a No Person in Current Environment Do you have thoughts of harming yourself None or others? Are you currently considering suicide? No Do you have a plan to hurt yourself or No Plan others? Do You Have Any Spiritual Beliefs That No May Affect Your HC Choices? Do You Have Any Cultural Practices That No May Affect Your HC Choices? Spiritual Referral None Who Can We Speak to About Patient's Care Family, friends Identifying Code for Release of Patient Declines to issue Information Health Care Proxy/Next of Kin Shanel (Mother) Health Care Proxy Emergency Contact Name Adán Fredy (S.O.) Emergency Contact Advance Directives? Yes Advance Directives on File Yes Requested Patient Bring Advanced Not Applicable Directives DOS PAC Instructions Do not shave/clip surgical site Durable medical equipment Medications to take/avoid Nasal antibiotic No ETOH/petroleum product on skin DOS NPO Post-op transportation Pre-surgical wash Sturdy shoes/comfortable clothes Do not bring valuables and remove jewelry
[2018-06-11] MEDS: ASPIRIN EC 81 MG TABLET PO (09:44)
[2018-06-11] MEDS: SODIUM CHLORIDE 0.9% FLUSH 10 ML IV (09:44)
--- NOTE | 2018-06-11 10:13 | PM.DS.1 ---
History of Present Illness Date Patient Seen: 06/11/18 Time Patient Seen: 10:13 Chief complaint: total hip arthroplasty right [id number] Narrative: History and physical are contained in the chart previously completed note for this patient. Please refer to that note for this information. Discharge Providers Date of admission: 06/08/18 05:42 Primary care physician: Donna Tello DO Consults: 06/08/18 06:00 Consult to Anesthesiology Routine Comment: Consulting Provider: Anesthesiologist Reason for consultation: Regional block for post operative pain control 06/08/18 12:36 Consult to Discharge Planning Routine Comment: Consult to Physical Therapy Evaluate & Treat Comment: anterior Physician Instructions: post op DANIKA protocol Consult to Respiratory Therapy Evaluate & Treat Comment: Physician Instructions: Evaluate and treat Discharge provider: Cayden Chakraborty MD Discharge Date: 06/11/18 Summary Discharge Diagnosis: 1. Osteoarthritis of the right hip 2. Post hemorrhagic anemia 3. Pre-existing preoperative anemia Hospital Course: The patient was admitted to the hospital and taken directly to the operating room on June 08, 2018 where she underwent a right total hip replacement without complications. She had an unremarkable postoperative course with the exception of her anemia. Her hematocrit dropped to approximately 21 but remained stable there with no further drop. On postoperative day 3 the patient was asymptomatic from the low hematocrit was felt to be stable for discharge home. Status at Discharge Cognitive/behavioral status at discharge: Baseline Functional status at discharge: uses cane/walker Overall status at discharge: patient is progressing back to baseline Time Spent with Patient Less than 30 minutes Exam Vital Signs (past 8 hours): - 06/11/18 04:12 06/11/18 07:40 Temperature 97.8 F 97.8 F Pulse Rate 85 78 Respiratory Rate 15 20 Blood Pressure 132/74 119/58 L Pulse Oximetry 96 100 Oxygen Delivery Method Room Air Oxygen Flow Rate 0 Narrative Exam Narrative: Right hip wound is dressed. There is no significant drainage on the bandage. Calf is soft. Light touch and motion are intact in the right lower extremity. Length and rotation of the extremity appear to be appropriate. Objective Labs Result Diagrams: 06/11/18 05:35 Labs: Laboratory Results - last 24 hr 06/11/18 05:35 Hgb 7.1 L Hct 21.1 L Discharge Plan Discharge Plan Patient Disposition: Home Discharge Med Rec/Prescriptions Prescriptions: New aspirin 81 mg Tablet,Delayed Release (Dr/Ec) 81 mg PO BID 42 Days Qty: 84 RF: 0 oxycodone 5 mg Tablet 5 mg PO Q3HR PRN (Reason: Pain, Moderate (4-6)) Qty: 40 RF: 0 ferrous gluconate 324 mg (38 mg iron) Tablet 324 mg PO BID Qty: 30 RF: 0 Continue ascorbic acid (vitamin C) 500 mg capsule 500 mg PO DAILY RF: 0 calcium carbonate [Calcium 500] 500 mg calcium (1,250 mg) tablet 500 mg PO BID RF: 0 denosumab [Prolia] 60 mg/mL syringe 60 mg SUBCUT [id number] RF: 0 plant stanol jose guadalupe [Cholest Off Plus] 450 mg capsule 1 tab PO BID RF: 0 vit C,A-Ck-lkufe-lutein-zeaxan [PreserVision AREDS-2] [id number] Capsule 1 tab PO BID Qty: 0 RF: 0 meclizine 25 MG tablet 25 mg PO QAM PRN (Reason: Dizziness) RF: 0 Follow up/Referrals: Keily Garcia MD [Physician] - 2 Weeks Provider Discharge Instructions Diet: Diet as Tolerated and Regular Activity: You may weightbear as tolerated. Follow your hip precautions. Cold/Heat Therapy: Apply ice to the right hip for 15 min out of every hour as needed. Skin/Wound/Dressing Care Report to your healthcare provider any signs of infection, such as:: chills, fever, night sweats, increased pain and unusual drainage Dressing: Leave the dressing in place until year postoperative follow-up appointment. You may shower with the dressing in place. If the central strip becomes saturated with either blood or water please contact the office. Discharge Data Primary Care Provider: Donna Tello Attending Provider: Keily Garcia Admit Date/Time: 06/08/18 05:42 Quality VTE Deep Vein Thrombosis/Pulmonary Embolism Present on Admission: No
--- NOTE | 2018-06-11 10:16 | P.DS_ITS ---
History of Present Illness Date Patient Seen: 06/11/18 Time Patient Seen: 10:13 Chief complaint: total hip arthroplasty right [id number] Narrative: History and physical are contained in the chart previously completed note for this patient. Please refer to that note for this information. Discharge Providers Date of admission: 06/08/18 05:42 Primary care physician: Donna Tello DO Consults: 06/08/18 06:00 Consult to Anesthesiology Routine Comment: Consulting Provider: Anesthesiologist Reason for consultation: Regional block for post operative pain control 06/08/18 12:36 Consult to Discharge Planning Routine Comment: Consult to Physical Therapy Evaluate & Treat Comment: anterior Physician Instructions: post op DANIKA protocol Consult to Respiratory Therapy Evaluate & Treat Comment: Physician Instructions: Evaluate and treat Discharge provider: Cayden Chakraborty MD Discharge Date: 06/11/18 Summary Discharge Diagnosis: 1. Osteoarthritis of the right hip 2. Post hemorrhagic anemia 3. Pre-existing preoperative anemia Hospital Course: The patient was admitted to the hospital and taken directly to the operating room on June 08, 2018 where she underwent a right total hip replacement without complications. She had an unremarkable postoperative course with the exception of her anemia. Her hematocrit dropped to approximately 21 but remained stable there with no further drop. On postoperative day 3 the patient was asymptomatic from the low hematocrit was felt to be stable for discharge home. Status at Discharge Cognitive/behavioral status at discharge: Baseline Functional status at discharge: uses cane/walker Overall status at discharge: patient is progressing back to baseline Time Spent with Patient Less than 30 minutes Exam Vital Signs (past 8 hours): - 06/11/18 04:12 06/11/18 07:40 Temperature 97.8 F 97.8 F Pulse Rate 85 78 Respiratory Rate 15 20 Blood Pressure 132/74 119/58 L Pulse Oximetry 96 100 Oxygen Delivery Method Room Air Oxygen Flow Rate 0 Narrative Exam Narrative: Right hip wound is dressed. There is no significant drainage on the bandage. Calf is soft. Light touch and motion are intact in the right lower extremity. Length and rotation of the extremity appear to be appropriate. Objective Labs Result Diagrams: 06/11/18 05:35 Labs: Laboratory Results - last 24 hr 06/11/18 05:35 Hgb 7.1 L Hct 21.1 L Discharge Plan Discharge Plan Patient Disposition: Home Discharge Med Rec/Prescriptions Prescriptions: New aspirin 81 mg Tablet,Delayed Release (Dr/Ec) 81 mg PO BID 42 Days Qty: 84 RF: 0 oxycodone 5 mg Tablet 5 mg PO Q3HR PRN (Reason: Pain, Moderate (4-6)) Qty: 40 RF: 0 ferrous gluconate 324 mg (38 mg iron) Tablet 324 mg PO BID Qty: 30 RF: 0 Continue ascorbic acid (vitamin C) 500 mg capsule 500 mg PO DAILY RF: 0 calcium carbonate [Calcium 500] 500 mg calcium (1,250 mg) tablet 500 mg PO BID RF: 0 denosumab [Prolia] 60 mg/mL syringe 60 mg SUBCUT [id number] RF: 0 plant stanol jose guadalupe [Cholest Off Plus] 450 mg capsule 1 tab PO BID RF: 0 vit C,U-Bf-wxcsl-lutein-zeaxan [PreserVision AREDS-2] [id number] mg-unit-mg- mg Capsule 1 tab PO BID Qty: 0 RF: 0 meclizine 25 MG tablet 25 mg PO QAM PRN (Reason: Dizziness) RF: 0 Follow up/Referrals: Keily Garcia MD [Physician] - 2 Weeks Provider Discharge Instructions Diet: Diet as Tolerated and Regular Activity: You may weightbear as tolerated. Follow your hip precautions. Cold/Heat Therapy: Apply ice to the right hip for 15 min out of every hour as needed. Skin/Wound/Dressing Care Report to your healthcare provider any signs of infection, such as:: chills, fever, night sweats, increased pain and unusual drainage Dressing: Leave the dressing in place until year postoperative follow-up appointment. You may shower with the dressing in place. If the central strip becomes saturated with either blood or water please contact the office. Discharge Data Primary Care Provider: Donna Tello Attending Provider: Keily Garcia Admit Date/Time: 06/08/18 05:42 Quality VTE Deep Vein Thrombosis/Pulmonary Embolism Present on Admission: No
[2018-06-11 11:15] VITALS: BP 131/61; PULSE 82; RESP 16; TEMP 36.7; O2SAT 100
--- NOTE | 2018-06-11 11:46 | PT.IPTN ---
Current Diagnoses Acute posthemorrhagic anemia (06/08/18) Unilateral primary osteoarthritis, right hip (06/08/18) Surgery Performed Operation Date: 06/08/18 07:45 Actual Procedures p Right Total Hip Arthroplasty-Anterior Approach(Right) - Keily Garcia MD Physical Therapy Treatment Note M2 PT-IP Current Condition Start: 06/08/18 16:44 Freq: NEEDED Status: Active Protocol: Document 06/08/18 16:04 (Rec: 06/08/18 18:11 [id number]) Physical Therapy Current Condition Current Condition Evaluation Date 06/08/18 Treatment Diagnosis R DANIKA (anterior approach); Difficulty walking Onset Date 06/08/18 Precautions Anterior Hip Precautions No Hip Extension No Hip External Rotation Weight Bearing Status Weight Bearing Status Weight Bear as Tolerated M3 PT-IP Subjective Start: 06/08/18 16:44 Freq: NEEDED Status: Active Protocol: Document 06/11/18 10:30 CLB (Rec: 06/11/18 11:46 CLB [id number]) Subjective Physical Therapy Visit Type Type Treatment Note Visit Start Time 10:30 Visit Stop Time 10:55 Total Visit Minutes 25 Number of HAMMER HEATER Visits 5 Physical Therapy Visit Comments Patient Comments Pt states she is feeling better just tired. Therapy Pain Assessment Pain When Pain Assessed At Rest Pain Present Pain Present Denied Pain M4 PT-IP Mobility and Gait Start: 06/08/18 16:44 Freq: NEEDED Status: Active Protocol: Document 06/11/18 10:30 CLB (Rec: 06/11/18 11:46 CLB [id number]) PT-Bed Mobility Assessment Sit to Supine Sit to Supine Minimal Assistance Scooting Scooting Up and Down in Bed Standby Assistance PT-Transfer Assessment Sit to and From Stand Sit to and from Stand Contact Guard Assistance Equipment Transfer Assistive Device Gait Belt Front Wheeled Walker Orthotic/Prosthetic Devices or Brace: No Transfers Transfer Destination Bed Comments Mobility Comments Pt improving with all mobility needing assist of LLE into bed. Gait Assessment Gait Gait Assistance Required: Contact Guard Assist Distance (Feet) 150 Able to Maintain Weight Bearing Status Yes During Gait Assistive Devices Assistive Device Gait Belt Front Wheeled Walker Orthotic/Prosthetic Devices or Brace: No Gait Deviations General Gait Pattern Antalgic Decreased Stride Length Decreased Feet Clearance Step-to Gait Factors Limiting Gait Function Factors Limiting Gait Function Decreased Activity Tolerance Decreased Strength Limited Range of Motion Comments Gait Comments Pt ambulates slowly with good safety awareness with small step to gait pattern. Stair Climbing Assessment Evaluation Level of Assist On Stairs Contact Guard Assistance 1 Person Assistance Devices Stair Climbing Assistive Devices Front Wheel Walker Technique/Endurance Stair Climbing Direction Ascend and Descend Stair Climbing Technique Step to Step Number of Steps Climbed 1 Query Text: Stair Climbing Set # Repetitions (reps) 2 Comments Stair Climbing Comments Pt able to perform stair training with good recall of sequencing after demonstration . PT-Balance Assessment Sitting Balance and Reactions Static Sitting Balance Ability Good Dynamic Sitting Balance Ability Good M5 PT-IP Objective Assessments Start: 06/08/18 16:44 Freq: NEEDED Status: Active Protocol: Document 06/08/18 16:04 (Rec: 06/08/18 18:11 [email or web address]) Orientation Orientation/Cognition Level of Alertness Alert Orientation Name Birthday Place Situation Safety Awareness Decreased Safety Awareness Gross Range of Motion Lower Extremity ROM Assessment Right Impaired Strength Lower Extremity Strength Assessment Right Impaired Comments Strength Comments RLE 3+/5; LLE WNL Sensation Assessment Sensation Gross Sensation WNL M6 PT-IP Treatment Start: 06/08/18 16:44 Freq: NEEDED Status: Active Protocol: Document 06/11/18 10:30 CLB (Rec: 06/11/18 11:46 CLB [id number]) Physical Therapy Treatment Exercises Exercises Ankle Pumps Gluteal Sets Quad Sets Heel Slides Education Education Provided Precautions Safety M7 PT-IP Assessment and Plan Start: 06/08/18 16:44 Freq: NEEDED Status: Active Protocol: Document 06/11/18 10:30 CLB (Rec: 06/11/18 11:46 CLB [id number]) PT Summary Assessment and Plan Summary Assessment Summary Pt continues to improve with all mobility with no dizziness with ambulation or transfers. Pt able to recall 2/2 precautions. Pt seems able to d/c when medically stable wit 24/7 assist. Goals Bed Mobility Goal Independent Transfer Goal Standby Assistance Gait Goal Standby Assistance Gait Distance 150 Other Goals Pt will complete 1 platform step up/down SBA as needed for safe entry to home. Days to Meet Goals 3 Frequency of Treatment Frequency Of Treatment Twice a Day Treatment Plan Other Recommendations and Next Treatment Pt to d/c with 24/7 assist. Focus Recommendations To Nursing Amount of Assist Needed 1 Person Assist Discharge Recommendations PT Discharge Recommendations Home with 24/7 Assist Outpatient PT
--- NOTE | 2018-06-11 13:55 | PC.NURSE ---
AM NOTE - alert, no complaint nausea, assist w fww x1 person to br, voided, passing flatus, denies dizziness or sob when up, discussed constipation with the iron tabs and pt declined addl measures, did give docusate, felt that the miralax yesterday was responsible for emesis, will resume her own home laxatives when discharged, discussed pain mgt and prefers to continue with the scheduled tylenol, does have scripts at home that were filled prior to surgery, bp 119/58, hr 80, 02 sat 98%Dr. Chakraborty in and aware H&H, pt will dc home with script for iron, per , pt to start after bm and try to add iron via foods, given handout to pt, lissette velasquez cdi, after lunch when friend arrived, phys therapy provided addl training w/stair practice, reviewed dc instructions, paperwork provided and tsf to wc, has glasses, cell phone and charge, clothing, bag and her own fww, escorted to friend's car by artificial breeding technician.
== END 2018-06-11 14:00 | disposition home or self-care (01) | DRG 470 ==
LOC: AC 06:11 → ICU 07:06 → AC 06-09 16:22
PROVIDERS: Physician Assistant Surgical; Admitting Provider Orthopaedic Surgery; Family Provider Family Medicine; PCP Family Medicine; Visit Provider Orthopaedic Surgery
PROC: 0SR902Z Replacement of Right Hip Joint with Metal on Polyethylene Synthetic Substitute, Open Approach (ICD-10-PCS; CPT 27130; principal; 2018-06-08 07:45)
DX: M16.11 Unilateral primary osteoarthritis, right hip (principal); D62 Acute posthemorrhagic anemia; D64.9 Anemia, unspecified
CPT/HCPCS: 36415; 73501; 73502; 76001; 85014; 85018; 87797; 94760; 97116; 97161; 97530; C1776; C9290; J0690; J2250; J2405; J2704; J3010; J3370

== ENCOUNTER → 2018-07-14 11:10 | Outpatient (CLI) | payer MEDICARE, OTHER, SELFPAY ==
[2018-06-08 12:08] VITALS: BMI 20.1
[2018-07-14 12:12] LABS: Add Manual Diff / Slide Review NO; Eosinophils Percent Auto 7.4 % (2-4); Hematocrit 32.7 % (36-46); Hemoglobin 11.1 g/dL (12.0-16.0); Lymphocytes Percent Auto 20.9 % (25-40); Mean Corpuscular HGB Conc 33.9 % (30-36); Mean Corpuscular Hemoglobin 31.7 PG (26-34); Mean Corpuscular Volume 93.5 fL (80-100); Monocytes Percent Auto 10.2 % (3-14); Neutrophils Absolute Auto 2700 /uL (3000-5900); Neutrophils Percent Auto 59.5 % (50-75); Platelet Count 220 X10^3/uL (150-400); Red Blood Cell Count 3.49 X10^6/uL (4.0-5.2); Red Cell Distribution Width 13.6 % (11.6-14.8); White Blood Cell Count 4.6 X10^3/uL (4.5-11.0)
[2018-07-14 12:18] LABS: HEMOLYSIS < 15 (0-50); Iron 104 ug/dL (37-170)
[2018-07-14 12:28] LABS: Percent Iron Saturation 36 % (15-50); Total Iron Binding Capacity 286 ug/dL (265-497); Transferrin 234 mg/dL (206-381)
== END ==
PROVIDERS: Family Provider Family Medicine; PCP Family Medicine; Visit Provider Family Medicine
DX: D64.9 Anemia, unspecified (principal)
CPT/HCPCS: 83540; 83550; 85025

== ENCOUNTER → 2018-08-31 09:53 | Outpatient (CLI) | payer MEDICARE, OTHER, SELFPAY ==
[2018-06-08 12:08] VITALS: BMI 20.1
[2018-08-31 12:11] LABS: Alanine Aminotransferase 31 IU/L (9-52); Albumin 4.2 g/dL (3.5-5.0); Albumin Globulin Ratio 1.6 (1.0-2.8); Alkaline Phosphatase 52 U/L (38-126); Aspartate Aminotransferase 30 IU/L (14-36); BUN Creatinine Ratio 22.9 (6-22); Bilirubin Total 0.3 mg/dL (0.2-1.3); Blood Urea Nitrogen 16 mg/dL (7-17); Calcium 9.4 mg/dL (8.4-10.2); Carbon Dioxide 29 mmol/L (22-32); Chloride 101 mmol/L (98-107); Estimated Glomerular Filt Rate > 60.0 mL/min (>60); Globulin 2.7 g/dL (1.7-4.1); Glucose 82 mg/dL (80-110); HEMOLYSIS < 15 (0-50); Phosphorous 3.6 mg/dL (2.8-4.1); Potassium 4.3 mmol/L (3.4-5.1); Sodium 141 mmol/L (137-145); Total Protein 6.9 g/dL (6.3-8.2)
== END ==
PROVIDERS: PCP Family Medicine; Visit Provider Internal Medicine
DX: Z51.81 Encounter for therapeutic drug level monitoring (principal); R29.898 Other symptoms and signs involving the musculoskeletal system
CPT/HCPCS: 36415; 80053; 83735; 84100

== ENCOUNTER → 2018-10-17 13:28 | Outpatient (CLI) | payer MEDICARE, OTHER, SELFPAY ==
[2018-06-08 12:08] VITALS: BMI 20.1
--- NOTE | 2018-10-17 | DI.MG.S_ITS ---
BILATERAL DIGITAL SCREENING MAMMOGRAM 3D/2D WITH CAD: 10/17/2018 CLINICAL: Routine. Personal history of breast cancer. Comparison is made to exams dated: 09/23/2017 mammogram, 09/08/2016 mammogram - [facility], and 08/11/2015 mammogram - [facility]. The tissue of both breasts is extremely dense, which lowers the sensitivity of mammography. Current study was also evaluated with a Computer Aided Detection (CAD) system. There are benign post operative findings in the left breast. There also are benign calcifications in the left breast. No significant masses, calcifications, or other findings are seen in either breast. There has been no significant interval change. IMPRESSION: There is no mammographic evidence of malignancy. A 1 year screening mammogram is recommended. This exam was interpreted at Station ID: [id number]. NOTE: For mammograms, a report in lay terms will be sent to the patient. Approximately 15% of breast malignancies will not be visualized mammographically. In the management of a palpable breast mass, a negative mammogram must not discourage biopsy of a clinically suspicious lesion. Electronically Signed By: Arthur daly/portillo:10/17/2018 18:40:07 letter sent: Normal Exam ACR BI-RADS Category 2: Benign Finding(s) 3342F
== END ==
PROVIDERS: Family Provider Family Medicine; PCP Family Medicine; Visit Provider Family Medicine
DX: Z12.31 Encounter for screening mammogram for malignant neoplasm of breast (principal); Z85.3 Personal history of malignant neoplasm of breast
CPT/HCPCS: 77063; 77067

== ENCOUNTER → 2019-02-27 09:25 | Outpatient (CLI) | payer MEDICARE, OTHER, SELFPAY ==
[2018-06-08 12:08] VITALS: BMI 20.1
== END ==
PROVIDERS: Family Provider Family Medicine; PCP Family Medicine; Visit Provider Internal Medicine
DX: M81.0 Age-related osteoporosis without current pathological fracture (principal); Z78.0 Asymptomatic menopausal state; E07.9 Disorder of thyroid, unspecified; Z85.3 Personal history of malignant neoplasm of breast; Z82.62 Family history of osteoporosis
CPT/HCPCS: 77080; 77081

== ENCOUNTER → 2019-03-21 13:09 | Outpatient (CLI) | payer MEDICARE, OTHER, SELFPAY ==
[2018-06-08 12:08] VITALS: BMI 20.1
[2019-03-21 14:11] LABS: Alanine Aminotransferase 31 IU/L (9-52); Albumin 4.4 g/dL (3.5-5.0); Albumin Globulin Ratio 1.6 (1.0-2.8); Alkaline Phosphatase 51 U/L (38-126); Aspartate Aminotransferase 49 IU/L (14-36); BUN Creatinine Ratio 31.4 (6-22); Bilirubin Total 0.4 mg/dL (0.2-1.3); Blood Urea Nitrogen 22 mg/dL (7-17); Calcium 9.6 mg/dL (8.4-10.2); Carbon Dioxide 30 mmol/L (22-32); Chloride 100 mmol/L (98-107); Estimated Glomerular Filt Rate > 60.0 mL/min (>60); Globulin 2.7 g/dL (1.7-4.1); Glucose 83 mg/dL (80-110); HEMOLYSIS < 15 (0-50); Potassium 4.4 mmol/L (3.4-5.1); Sodium 139 mmol/L (137-145); Total Protein 7.1 g/dL (6.3-8.2)
== END ==
PROVIDERS: PCP Family Medicine; Visit Provider Internal Medicine
DX: Z51.81 Encounter for therapeutic drug level monitoring (principal)
CPT/HCPCS: 36415; 80053; 84100

== ENCOUNTER → 2019-04-10 10:00 | Outpatient (CLI) | payer MEDICARE, OTHER, SELFPAY ==
[2018-06-08 12:08] VITALS: BMI 20.1
[2019-04-10 11:09] LABS: Hematocrit 38.8 % (36-46); Hemoglobin 13.1 g/dL (12.0-16.0); Mean Corpuscular HGB Conc 33.7 % (30-36); Mean Corpuscular Hemoglobin 31.2 PG (26-34); Mean Corpuscular Volume 92.7 fL (80-100); Platelet Count 184 X10^3/uL (150-400); Red Blood Cell Count 4.18 X10^6/uL (4.0-5.2); Red Cell Distribution Width 12.8 % (11.6-14.8); White Blood Cell Count 4.3 X10^3/uL (4.5-11.0)
[2019-04-10 11:29] LABS: Neutrophils Absolute Manual 2623 /uL (3000-5900); RBC Morphology Normal Morphology; Total Cells Counted 100
[2019-04-10 11:30] LABS: Alanine Aminotransferase 27 IU/L (9-52); Albumin 4.1 g/dL (3.5-5.0); Albumin Globulin Ratio 1.6 (1.0-2.8); Alkaline Phosphatase 46 U/L (38-126); Aspartate Aminotransferase 43 IU/L (14-36); Bilirubin Total 0.4 mg/dL (0.2-1.3); Bilirubin Unconjugated 0.4 mg/dL (0.0-1.1); Globulin 2.6 g/dL (1.7-4.1); HEMOLYSIS < 15 (0-50); Total Protein 6.7 g/dL (6.3-8.2)
[2019-04-12 16:04] LABS: Hepatitis A Antibody IgM NONREACTIVE (NONREACTIVE); Hepatitis Acute Panel Interp 0.01; Hepatitis B Core Antibody IgM NONREACTIVE (NONREACTIVE); Hepatitis B Surface Antigen NONREACTIVE (NONREACTIVE); Hepatitis C Antibody NONREACTIVE
== END ==
PROVIDERS: PCP Family Medicine; Visit Provider Family Medicine
DX: R94.5 Abnormal results of liver function studies (principal); Z86.2 Personal history of diseases of the blood and blood-forming organs and certain disorders involving the immune mechanism
CPT/HCPCS: 36415; 80074; 80076; 85025

== ENCOUNTER → 2019-04-13 09:17 | Outpatient (CLI) | payer MEDICARE, OTHER, SELFPAY ==
[2018-06-08 12:08] VITALS: BMI 20.1
--- NOTE | 2019-04-13 09:20 | DI.US.S_ITS ---
PROCEDURE: US ABDOMEN COMPLETE INDICATIONS: ABNORMAL LIVER FUNCTION STUDIES TECHNIQUE: Real-time scanning was performed of the abdominal and retroperitoneal organs, with image documentation. COMPARISON: None. FINDINGS: Liver: Liver is diffusely increased in echogenicity. No focal hepatic abnormalities identified. Normal hepatic size. Multiple hepatic cysts present, largest measuring 3.7 cm. Small focus of fatty infiltration noted within the inferior right lobe. Gallbladder: 1.7 cm mobile gallstone. No gallbladder wall thickening or pericholecystic fluid. Biliary ducts: Intrahepatic bile ducts are non-dilated. Extrahepatic bile duct caliber measures 6.1 mm. Normal is 6-7 mm or less in diameter, or 10 mm or less post-cholecystectomy. Pancreas: Visualized portions of the pancreas are sonographically normal. Spleen: Spleen is normal in size and homogeneous in echotexture. Kidneys: Kidneys are normal in size and echotexture. Right kidney measures 10.0 cm long; left kidney measures 10.8 cm long. No hydronephrosis or nephrolithiasis. No solid masses. Aorta: Visualized aorta is normal in caliber at less than 3 cm. Iliacs: Proximal common iliac arteries are normal in caliber at less than 2.5 cm. IVC: Intrahepatic inferior vena cava is patent. Miscellaneous: No free abdominal fluid. IMPRESSION: 1. Increased hepatic echogenicity noted possibly related to hepatic steatosis but other sources of hepatocellular disease cannot be excluded. Recommend clinical correlation. 2. Multiple hepatic cysts. 3. Cholelithiasis without acute cholecystitis. Dictated by: Alan MTZ Interpreted: Lashae Queen MD on 04/13/2019 at 14:02 Approved by: Lashae Queen M.D. on 04/13/2019 at 14:10
== END ==
PROVIDERS: PCP Family Medicine; Visit Provider Family Medicine
DX: R94.5 Abnormal results of liver function studies (principal); K80.20 Calculus of gallbladder without cholecystitis without obstruction; K76.89 Other specified diseases of liver; Z86.2 Personal history of diseases of the blood and blood-forming organs and certain disorders involving the immune mechanism
CPT/HCPCS: 76700

== ENCOUNTER → 2019-10-09 08:58 | Outpatient (CLI) | payer MEDICARE, OTHER, SELFPAY ==
[2018-06-08 12:08] VITALS: BMI 20.1
[2019-10-09 10:17] LABS: Alanine Aminotransferase 23 IU/L (<35); Albumin 4.3 g/dL (3.5-5.0); Albumin Globulin Ratio 1.4 (1.0-2.8); Alkaline Phosphatase 42 U/L (38-126); Aspartate Aminotransferase 41 IU/L (14-36); BUN Creatinine Ratio 25.7 (6-22); Bilirubin Total 0.3 mg/dL (0.2-1.3); Blood Urea Nitrogen 18 mg/dL (7-17); Calcium 9.4 mg/dL (8.4-10.2); Carbon Dioxide 34 mmol/L (22-32); Chloride 104 mmol/L (98-107); Estimated Glomerular Filt Rate > 60.0 mL/min (>60); Globulin 3.1 g/dL (1.7-4.1); Glucose 90 mg/dL (80-110); HEMOLYSIS < 15 (0-50); Phosphorous 3.8 mg/dL (2.8-4.1); Sodium 143 mmol/L (137-145); Total Protein 7.4 g/dL (6.3-8.2)
== END ==
PROVIDERS: PCP Family Medicine; Referring Provider Internal Medicine; Visit Provider Internal Medicine
DX: Z51.81 Encounter for therapeutic drug level monitoring (principal)
CPT/HCPCS: 36415; 80053; 84100

== ENCOUNTER → 2019-10-18 09:02 | Outpatient (CLI) | payer MEDICARE, OTHER, SELFPAY ==
[2018-06-08 12:08] VITALS: BMI 20.1
--- NOTE | 2019-10-18 | DI.US.S_ITS ---
PROCEDURE: US THYROID INDICATIONS: RIGHT THRYOID NODULE TECHNIQUE: Real-time scanning was performed of the thyroid gland, with image documentation. COMPARISON: None. FINDINGS: Right: Thyroid lobe measures 4.9 x 1.6 x 1.3 cm, and is homogeneous in echotexture. Left: Thyroid lobe measures 4.0 x 1.6 x 1.5 cm, and is homogenous in echotexture. Isthmus: 3.0 mm thick. Nodule number: 1 Location: Right mid Size: 0.6 x 0.3 x 0.5 cm. Composition: Predominately cystic Echogenicity: Hypoechoic Shape: wider than tall. Margins: Smooth Echogenic foci: None Total points: 2 ACR TI-RADS category: Not suspicious Nodule number: 2 Location: Left superior Size: 1.0 x 0.7 x 0.8 cm. Composition: Predominately solid Echogenicity: Hypoechoic Shape: wider than tall. Margins: Smooth Echogenic foci: Internal echogenic punctate foci Total points: 7 ACR TI-RADS category: Highly suspicious Nodule number: 3 Location: Left inferior Size: 1.6 x 1.2 x 0.8 cm. Composition: Solid Echogenicity: Isoechoic Shape: wider than tall. Margins: Smooth Echogenic foci: None Total points: 3 ACR TI-RADS category: Mildly suspicious IMPRESSION: Bilateral thyroid nodules as above. No fine-needle aspiration at this time given the small size. Recommend continued followup ultrasound as detailed below. ACR TI-RADS definitions and recommendations: TI-RADS 1 (benign): 0 points. FNA not needed. TI-RADS 2 (not suspicious): 2 points. FNA not needed. TI-RADS 3 (mildly suspicious): 3 points. * FNA if 2.5 cm or larger, follow up if 1.5 cm or larger (at 1, 3, and 5 years). TI-RADS 4 (moderately suspicious): 4-6 points. * FNA if 1.5 cm or larger, follow up if 1 cm or larger (at 1, 2, 3, and 5 years). TI-RADS 5 (highly suspicious): 7 points or more. * FNA if 1 cm or larger, follow up if 0.5 cm or larger (every year for 5 years). Dictated by: Alan MTZ Interpreted: Eloy Barrett MD on 10/18/2019 at 16:52 Approved by: Eloy Barrett M.D. on 10/19/2019 at 13:45
[2019-10-18 12:07] LABS: Alanine Aminotransferase 19 IU/L (<35); Albumin 4.3 g/dL (3.5-5.0); Albumin Globulin Ratio 1.4 (1.0-2.8); Alkaline Phosphatase 44 U/L (38-126); Aspartate Aminotransferase 41 IU/L (14-36); Bilirubin Total 0.4 mg/dL (0.2-1.3); Bilirubin Unconjugated 0.3 mg/dL (0.0-1.1); HEMOLYSIS < 15 (0-50); Total Protein 7.3 g/dL (6.3-8.2)
[2019-10-18 12:59] LABS: TSH w/ Reflex to FT4 1.25 uIU/mL (0.47-4.68)
[2019-10-23 08:34] LABS: BUN Creatinine Ratio 26.7 (6-22); Blood Urea Nitrogen 16 mg/dL (7-17); Calcium 9.2 mg/dL (8.4-10.2); Carbon Dioxide 31 mmol/L (22-32); Chloride 106 mmol/L (98-107); Estimated Glomerular Filt Rate > 60.0 mL/min (>60); Glucose 61 mg/dL (80-110); Phosphorous 3.5 mg/dL (2.8-4.1); Potassium 4.5 mmol/L (3.4-5.1); Sodium 142 mmol/L (137-145)
== END ==
PROVIDERS: PCP Family Medicine; Referring Provider Internal Medicine; Visit Provider Internal Medicine
DX: E04.2 Nontoxic multinodular goiter (principal); R74.8 Abnormal levels of other serum enzymes
CPT/HCPCS: 36415; 76536; 80053; 80076; 84100; 84443

== ENCOUNTER → 2019-10-24 11:25 | Outpatient (CLI) | payer MEDICARE, OTHER, SELFPAY ==
[2018-06-08 12:08] VITALS: BMI 20.1
--- NOTE | 2019-10-24 | DI.MG.S_ITS ---
BILATERAL DIGITAL SCREENING MAMMOGRAM 3D/2D WITH CAD POST LUMPECTOMY POST-RADIATION THERAPY: 10/24/2019 CLINICAL: Routine screening. Personal history of left breast cancer. Comparison is made to exams dated: 10/17/2018 mammogram, 09/23/2017 mammogram, and 09/08/2016 mammogram - [facility]. The tissue of both breasts is extremely dense, which lowers the sensitivity of mammography. Current study was also evaluated with a Computer Aided Detection (CAD) system. There are benign calcifications in the left breast. There also are benign post operative findings in the left breast. No significant masses, calcifications, or other findings are seen in either breast. There has been no significant interval change. IMPRESSION: There is no mammographic evidence of malignancy. A 1 year screening mammogram is recommended. This exam was interpreted at Station ID: [id number]. NOTE: For mammograms, a report in lay terms will be sent to the patient. Approximately 15% of breast malignancies will not be visualized mammographically. In the management of a palpable breast mass, a negative mammogram must not discourage biopsy of a clinically suspicious lesion. Electronically Signed By: Petra maurice/portillo:10/24/2019 16:24:56 letter sent: Normal Exam ACR BI-RADS Category 2: Benign Finding(s) 3342F
== END ==
PROVIDERS: PCP Family Medicine; Referring Provider Family Medicine; Visit Provider Family Medicine
DX: Z12.31 Encounter for screening mammogram for malignant neoplasm of breast (principal); Z85.3 Personal history of malignant neoplasm of breast
CPT/HCPCS: 77063; 77067

== ENCOUNTER → 2019-12-31 15:20 | Outpatient (CLI) | payer MEDICARE, OTHER, SELFPAY ==
[2018-06-08 12:08] VITALS: BMI 20.1
--- NOTE | 2019-12-31 15:25 | DI.RAD.S_ITS ---
PROCEDURE: XR LUMBAR SPINE 2-3V INDICATIONS: low back pain TECHNIQUE: 2 views of the lumbar spine were acquired. COMPARISON: None. FINDINGS: Bones: 5 [id number] vertebrae are present. There is normal bony alignment. Mild chronic wedging of L4. Mild chronic wedging of L1. No suspicious bony lesions. Multilevel endplate osteophytes and disc space narrowing. Multilevel facet hypertrophy. Soft tissues: Overlying bowel gas pattern is normal. No suspicious soft tissue calcifications. IMPRESSION: 1. Multilevel degenerative disc and facet disease. 2. Mild chronic wedging of L1 and L4. 3. No acute fracture. No osseous lesion. If symptoms and/or clinical suspicion for pathology persist, further assessment with repeat, or advanced imaging (e.g., CT, MRI, or bone scan) may be helpful for further assessment. Dictated by: Ranjan Borden M.D. on 12/31/2019 at 16:27 Approved by: Ranjan Borden M.D. on 12/31/2019 at 16:28
== END ==
PROVIDERS: PCP Nurse Practitioner Family; Referring Provider Nurse Practitioner Family; Visit Provider Nurse Practitioner Family
DX: S39.012A Strain of muscle, fascia and tendon of lower back, initial encounter (principal); M51.36 Other intervertebral disc degeneration, lumbar region
CPT/HCPCS: 72100

== ENCOUNTER → 2020-03-17 11:07 | Outpatient (CLI) | payer MEDICARE, OTHER, SELFPAY ==
[2018-06-08 12:08] VITALS: BMI 20.1
[2020-03-17 12:25] LABS: Alanine Aminotransferase 36 IU/L (<35); Albumin 4.4 g/dL (3.5-5.0); Albumin Globulin Ratio 1.7 (1.0-2.8); Alkaline Phosphatase 49 U/L (38-126); Aspartate Aminotransferase 38 IU/L (14-36); BUN Creatinine Ratio 26.7 (6-22); Bilirubin Total 0.3 mg/dL (0.2-1.3); Blood Urea Nitrogen 16 mg/dL (7-17); Carbon Dioxide 32 mmol/L (22-32); Chloride 101 mmol/L (98-107); Estimated Glomerular Filt Rate > 60.0 mL/min (>60); Globulin 2.6 g/dL (1.7-4.1); Glucose 92 mg/dL (80-110); HEMOLYSIS < 15 (0-50); Phosphorous 4.7 mg/dL (2.8-4.1); Potassium 4.3 mmol/L (3.4-5.1); Sodium 138 mmol/L (137-145)
== END ==
PROVIDERS: PCP Nurse Practitioner Family; Referring Provider Internal Medicine; Visit Provider Internal Medicine
DX: Z51.81 Encounter for therapeutic drug level monitoring (principal)
CPT/HCPCS: 36415; 80053; 84100

== ENCOUNTER → 2020-06-16 09:17 | Outpatient (CLI) | payer MEDICARE, OTHER, SELFPAY ==
[2018-06-08 12:08] VITALS: BMI 20.1
[2020-06-16 10:12] LABS: Hemoglobin 12.7 g/dL (12.0-16.0); Mean Corpuscular HGB Conc 33.5 % (30-36); Mean Corpuscular Hemoglobin 30.4 PG (26-34); Mean Corpuscular Volume 90.9 fL (80-100); Platelet Count 187 X10^3/uL (150-400); Red Blood Cell Count 4.19 X10^6/uL (4.0-5.2); Red Cell Distribution Width 12.6 % (11.6-14.8); White Blood Cell Count 5.1 X10^3/uL (4.5-11.0)
[2020-06-16 10:32] LABS: Alanine Aminotransferase 29 IU/L (<35); Albumin 4.2 g/dL (3.5-5.0); Albumin Globulin Ratio 1.5 (1.0-2.8); Alkaline Phosphatase 43 U/L (38-126); Aspartate Aminotransferase 46 IU/L (14-36); BUN Creatinine Ratio 24.6 (6-22); Bilirubin Total 0.4 mg/dL (0.2-1.3); Blood Urea Nitrogen 16 mg/dL (7-17); Calcium 9.2 mg/dL (8.4-10.2); Carbon Dioxide 35 mmol/L (22-32); Chloride 102 mmol/L (98-107); Cholesterol 209 mg/dL (140-199); Estimated Glomerular Filt Rate > 60.0 mL/min (>60); Globulin 2.8 g/dL (1.7-4.1); Glucose 80 mg/dL (80-110); HDL Cholesterol 49 mg/dL (40-60); HEMOLYSIS < 15 (0-50); LDL Cholesterol Calculated 129 mg/dL (<100); Phosphorous 3.5 mg/dL (2.8-4.1); Sodium 138 mmol/L (137-145); Triglycerides 156 mg/dL (35-150)
== END ==
PROVIDERS: PCP Nurse Practitioner Family; Referring Provider Nurse Practitioner Family; Visit Provider Nurse Practitioner Family
DX: Z00.00 Encounter for general adult medical examination without abnormal findings (principal); Z13.6 Encounter for screening for cardiovascular disorders; E83.39 Other disorders of phosphorus metabolism; R74.8 Abnormal levels of other serum enzymes
CPT/HCPCS: 36415; 80053; 80061; 84100; 85027

== ENCOUNTER → 2020-09-26 10:20 | Outpatient (CLI) | payer MEDICARE, OTHER, SELFPAY ==
[2018-06-08 12:08] VITALS: BMI 20.1
[2020-09-26 12:36] LABS: Alanine Aminotransferase 24 IU/L (<35); Albumin 4.3 g/dL (3.5-5.0); Albumin Globulin Ratio 1.6 (1.0-2.8); Alkaline Phosphatase 48 U/L (38-126); Aspartate Aminotransferase 40 IU/L (14-36); BUN Creatinine Ratio 23.4 (6-22); Bilirubin Total 0.3 mg/dL (0.2-1.3); Blood Urea Nitrogen 15 mg/dL (7-17); Calcium 9.3 mg/dL (8.4-10.2); Carbon Dioxide 34 mmol/L (22-32); Chloride 102 mmol/L (98-107); Estimated Glomerular Filt Rate > 60.0 mL/min (>60); Globulin 2.7 g/dL (1.7-4.1); Glucose 55 mg/dL (80-110); HEMOLYSIS < 15 (0-50); Phosphorous 3.9 mg/dL (2.8-4.1); Potassium 4.4 mmol/L (3.4-5.1); Sodium 139 mmol/L (137-145)
== END ==
PROVIDERS: PCP Nurse Practitioner Family; Referring Provider Internal Medicine Endocrinology, Diabetes & Metabolism; Visit Provider Internal Medicine Endocrinology, Diabetes & Metabolism
DX: M80.00XD Age-related osteoporosis with current pathological fracture, unspecified site, subsequent encounter for fracture with routine healing (principal); E04.9 Nontoxic goiter, unspecified
CPT/HCPCS: 36415; 80053; 84100

== ENCOUNTER → 2020-10-09 10:30 | Outpatient (CLI) | payer MEDICARE, OTHER, SELFPAY ==
[2018-06-08 12:08] VITALS: BMI 20.1
--- NOTE | 2020-10-09 | DI.US.S_ITS ---
PROCEDURE: US THYROID INDICATIONS: NONTOXIC GOITER TECHNIQUE: Real-time scanning was performed of the thyroid gland, with image documentation. COMPARISON: [facility], [place], US THYROID, 10/18/2019, 9:39. FINDINGS: Right: Thyroid lobe measures 5.0 x 1.6 x 1.7 cm, and is heterogeneous in echotexture. Left: Thyroid lobe measures 5.3 x 1.6 x 1.5 cm, and is heterogeneous in echotexture. Isthmus: 2.4 mm thick. Nodule number: 1 Location: Right lower pole--new nodule Size: 0.7 x 0.6 x 0.4 cm. Composition: Solid Echogenicity: Hypoechoic Shape: wider than tall. Margins: Smooth Echogenic foci: None Total points: 4 ACR TI-RADS category: Moderately suspicious Nodule number: 2 Location: Right middle pole, posterior lateral--new nodule Size: 0.9 x 0.8 x 0.6 cm. Composition: Predominantly solid Echogenicity: Isoechoic Shape: wider than tall. Margins: Smooth Echogenic foci: None Total points: 3 ACR TI-RADS category: Mildly suspicious Nodule number: 3 Location: Left middle pole Size: 0.9 x 0.9 x 0.6 cm, previously 1.0 x 0.7 x 0.8 cm. Composition: Solid Echogenicity: Hypoechoic Shape: wider than tall. Margins: Smooth Echogenic foci: Punctate Total points: 7 ACR TI-RADS category: Highly suspicious Nodule number: 4 Location: Left lower pole Size: 1.5 x 0.8 x 1.0 cm, previously 1.6 x 1.2 x 0.8 cm. Composition: Solid Echogenicity: Isoechoic Shape: wider than tall. Margins: Smooth Echogenic foci: Punctate Total points: 6 ACR TI-RADS category: Moderately suspicious IMPRESSION: 1. Punctate calcifications have developed in a left lower pole thyroid nodule, which has a maximum diameter of 1.5 cm. Recommend ultrasound-guided FNA of this lesion based on a size of 1.5 cm and a moderately suspicious appearance. 2. Additionally, recommend follow-up thyroid ultrasound in 1 year. ACR TI-RADS definitions and recommendations: TI-RADS 1 (benign): 0 points. FNA not needed. TI-RADS 2 (not suspicious): 2 points. FNA not needed. TI-RADS 3 (mildly suspicious): 3 points. * FNA if 2.5 cm or larger, follow up if 1.5 cm or larger (at 1, 3, and 5 years). TI-RADS 4 (moderately suspicious): 4-6 points. * FNA if 1.5 cm or larger, follow up if 1 cm or larger (at 1, 2, 3, and 5 years). TI-RADS 5 (highly suspicious): 7 points or more. * FNA if 1 cm or larger, follow up if 0.5 cm or larger (every year for 5 years). Dictated by: Justion Pedroza M.D. on 10/09/2020 at 11:54 Approved by: Justino Pedroza M.D. on 10/09/2020 at 12:03
== END ==
PROVIDERS: PCP Nurse Practitioner Family; Referring Provider Internal Medicine Endocrinology, Diabetes & Metabolism; Visit Provider Internal Medicine Endocrinology, Diabetes & Metabolism
DX: E04.2 Nontoxic multinodular goiter (principal)
CPT/HCPCS: 76536

== ENCOUNTER → 2020-10-28 10:27 | Outpatient (CLI) | payer MEDICARE, OTHER, SELFPAY ==
[2018-06-08 12:08] VITALS: BMI 20.1
--- NOTE | 2020-10-28 10:29 | DI.MG.S_ITS ---
BILATERAL DIGITAL SCREENING MAMMOGRAM 3D/2D WITH CAD: 10/28/2020 CLINICAL: Routine screening. Personal history of left breast cancer. Comparison is made to exams dated: 10/24/2019 mammogram, 10/17/2018 mammogram, and 09/23/2017 mammogram - [facility]. The tissue of both breasts is extremely dense, which lowers the sensitivity of mammography. Current study was also evaluated with a Computer Aided Detection (CAD) system. There are benign calcifications in the left breast. There also are benign post operative findings in the left breast. No significant masses, calcifications, or other findings are seen in either breast. There has been no significant interval change. IMPRESSION: BENIGN There is no mammographic evidence of malignancy. A 1 year screening mammogram is recommended. This exam was interpreted at Station ID: [id number]. NOTE: For mammograms, a report in lay terms will be sent to the patient. Approximately 15% of breast malignancies will not be visualized mammographically. In the management of a palpable breast mass, a negative mammogram must not discourage biopsy of a clinically suspicious lesion. Electronically Signed By: Lalo Martinez acr/penrad:10/28/2020 11:34:36 letter sent: Normal Exam ACR BI-RADS Category 2: Benign Finding(s) 3342F
== END ==
PROVIDERS: PCP Nurse Practitioner Family; Referring Provider Nurse Practitioner Family; Visit Provider Nurse Practitioner Family
DX: Z12.31 Encounter for screening mammogram for malignant neoplasm of breast (principal); Z85.3 Personal history of malignant neoplasm of breast; Z80.3 Family history of malignant neoplasm of breast
CPT/HCPCS: 77063; 77067

== ENCOUNTER → 2021-03-31 09:38 | Outpatient (CLI) | payer MEDICARE, OTHER, SELFPAY ==
[2018-06-08 12:08] VITALS: BMI 20.1
--- NOTE | 2021-03-31 | DI.RAD.S_ITS ---
PROCEDURE: XR DEXA AXIAL SKELETON INDICATIONS: Age-related osteoporosis COMPARISON: [facility], CR, XR DEXA AXIAL SKELETON, 02/27/2019, 10:05. FINDINGS: This blank DEXA report has been sent in error by the PACS system. The correct and complete report will be forthcoming in 1-2 days. Thank you for your patience and understanding. Dictated by: Susana Jolley MD, PhD on 03/31/2021 at 16:24 Approved by: Susana Jolley MD, PhD on 03/31/2021 at 16:24
[2021-03-31 10:43] LABS: Alanine Aminotransferase 41 IU/L (<35); Albumin 4.2 g/dL (3.5-5.0); Albumin Globulin Ratio 1.5 (1.0-2.8); Alkaline Phosphatase 45 U/L (38-126); Aspartate Aminotransferase 53 IU/L (14-36); BUN Creatinine Ratio 29.7 (6-22); Bilirubin Total 0.2 mg/dL (0.2-1.3); Bilirubin Unconjugated 0.2 mg/dL (0.0-1.1); Blood Urea Nitrogen 19 mg/dL (7-17); Calcium 9.2 mg/dL (8.4-10.2); Carbon Dioxide 30 mmol/L (22-32); Chloride 105 mmol/L (98-107); Cholesterol 227 mg/dL (140-199); Estimated Glomerular Filt Rate > 60.0 mL/min (>60); Globulin 2.8 g/dL (1.7-4.1); Glucose 90 mg/dL (80-110); HDL Cholesterol 53 mg/dL (40-60); HEMOLYSIS < 15 (0-50); LDL Cholesterol Calculated 138 mg/dL (<100); Phosphorous 3.6 mg/dL (2.8-4.1); Potassium 4.2 mmol/L (3.4-5.1); Sodium 139 mmol/L (137-145); Triglycerides 178 mg/dL (35-150)
== END ==
PROVIDERS: PCP Nurse Practitioner Family; Referring Provider Internal Medicine Endocrinology, Diabetes & Metabolism; Visit Provider Internal Medicine Endocrinology, Diabetes & Metabolism
DX: M85.852 Other specified disorders of bone density and structure, left thigh (principal); Z78.0 Asymptomatic menopausal state; E07.9 Disorder of thyroid, unspecified; I10 Essential (primary) hypertension; R74.01 Elevation of levels of liver transaminase levels; E78.2 Mixed hyperlipidemia; Z85.3 Personal history of malignant neoplasm of breast; Z82.62 Family history of osteoporosis
CPT/HCPCS: 36415; 77080; 80053; 80061; 80076; 84100

== ENCOUNTER → 2021-07-22 08:09 | Outpatient (CLI) | payer MEDICARE, OTHER, SELFPAY ==
[2018-06-08 12:08] VITALS: BMI 20.1
[2021-07-22 11:02] LABS: Alanine Aminotransferase 25 IU/L (<35); Albumin 4.1 g/dL (3.5-5.0); Albumin Globulin Ratio 1.6 (1.0-2.8); Alkaline Phosphatase 43 U/L (38-126); Aspartate Aminotransferase 35 IU/L (14-36); BUN Creatinine Ratio 18.2 (6-22); Bilirubin Total 0.6 mg/dL (0.2-1.3); Blood Urea Nitrogen 14 mg/dL (7-17); Calcium 9.4 mg/dL (8.4-10.2); Carbon Dioxide 35 mmol/L (22-32); Chloride 100 mmol/L (98-107); Cholesterol 147 mg/dL (140-199); Estimated Glomerular Filt Rate > 60.0 mL/min (>60); Globulin 2.6 g/dL (1.7-4.1); Glucose 91 mg/dL (80-110); HDL Cholesterol 49 mg/dL (40-60); HEMOLYSIS < 15 (0-50); LDL Cholesterol Calculated 69 mg/dL (<100); Potassium 4.2 mmol/L (3.4-5.1); Sodium 139 mmol/L (137-145); Total Protein 6.7 g/dL (6.3-8.2); Triglycerides 145 mg/dL (35-150)
[2021-07-22 11:14] LABS: Vitamin D 25 Hydroxy (D3) 68.4 ng/mL (30.0-100.0)
== END ==
PROVIDERS: PCP Nurse Practitioner Family; Referring Provider Nurse Practitioner Family; Visit Provider Nurse Practitioner Family
DX: E78.2 Mixed hyperlipidemia (principal); M85.80 Other specified disorders of bone density and structure, unspecified site; Z00.00 Encounter for general adult medical examination without abnormal findings
CPT/HCPCS: 36415; 80053; 80061; 82306

== ENCOUNTER → 2021-10-01 09:02 | Outpatient (CLI) | payer MEDICARE, OTHER, SELFPAY ==
[2018-06-08 12:08] VITALS: BMI 20.1
[2021-10-01 10:02] LABS: Alanine Aminotransferase 27 IU/L (<35); Albumin 4.2 g/dL (3.5-5.0); Albumin Globulin Ratio 1.8 (1.0-2.8); Alkaline Phosphatase 45 U/L (38-126); Aspartate Aminotransferase 40 IU/L (14-36); BUN Creatinine Ratio 19.7 (6-22); Bilirubin Total 0.6 mg/dL (0.2-1.3); Blood Urea Nitrogen 14 mg/dL (7-17); Calcium 9.5 mg/dL (8.4-10.2); Carbon Dioxide 31 mmol/L (22-32); Chloride 103 mmol/L (98-107); Estimated Glomerular Filt Rate > 60.0 mL/min (>60); Globulin 2.4 g/dL (1.7-4.1); Glucose 88 mg/dL (80-110); HEMOLYSIS < 15 (0-50); Phosphorous 4.2 mg/dL (2.8-4.1); Potassium 4.1 mmol/L (3.4-5.1); Sodium 140 mmol/L (137-145); Total Protein 6.6 g/dL (6.3-8.2)
== END ==
PROVIDERS: PCP Nurse Practitioner Family; Referring Provider Internal Medicine Endocrinology, Diabetes & Metabolism; Visit Provider Internal Medicine Endocrinology, Diabetes & Metabolism
DX: M80.00XD Age-related osteoporosis with current pathological fracture, unspecified site, subsequent encounter for fracture with routine healing (principal); Z51.81 Encounter for therapeutic drug level monitoring
CPT/HCPCS: 36415; 80053; 84100

== ENCOUNTER → 2021-11-17 15:39 | Outpatient (CLI) | payer MEDICARE, OTHER, SELFPAY ==
[2018-06-08 12:08] VITALS: BMI 20.1
--- NOTE | 2021-11-17 | DI.MG.S_ITS ---
BILATERAL DIGITAL SCREENING MAMMOGRAM 3D/2D WITH CAD: 11/17/2021 CLINICAL: Routine screening. Personal history of left breast cancer. Comparison is made to exams dated: 10/28/2020 mammogram, 10/24/2019 mammogram, and 10/17/2018 mammogram - [facility]. The tissue of both breasts is heterogeneously dense. This may lower the sensitivity of mammography. Current study was also evaluated with a Computer Aided Detection (CAD) system. There are benign calcifications in the left breast. There also are benign post operative findings in the left breast. No significant masses, calcifications, or other findings are seen in either breast. There has been no significant interval change. IMPRESSION: BENIGN There is no mammographic evidence of malignancy. A 1 year screening mammogram is recommended. This exam was interpreted at Station ID: [id number]. NOTE: For mammograms, a report in lay terms will be sent to the patient. Approximately 15% of breast malignancies will not be visualized mammographically. In the management of a palpable breast mass, a negative mammogram must not discourage biopsy of a clinically suspicious lesion. Electronically Signed By: Agatha amaral/portillo:11/18/2021 08:58:36 letter sent: Normal Exam ACR BI-RADS Category 2: Benign Finding(s) 3342F
== END ==
PROVIDERS: PCP Nurse Practitioner Family; Referring Provider Nurse Practitioner Family; Visit Provider Nurse Practitioner Family
DX: Z12.31 Encounter for screening mammogram for malignant neoplasm of breast (principal); Z85.3 Personal history of malignant neoplasm of breast
CPT/HCPCS: 77063; 77067

== ENCOUNTER → 2022-04-15 09:17 | Outpatient (CLI) | payer MEDICARE, OTHER, SELFPAY ==
[2018-06-08 12:08] VITALS: BMI 20.1
--- NOTE | 2022-04-15 | DI.US.S_ITS ---
PROCEDURE: US THYROID INDICATIONS: NODULES TECHNIQUE: Real-time scanning was performed of the thyroid gland, with image documentation. COMPARISON: US, US THYROID, 10/18/2019, 9:39. [facility], US, US THYROID, 10/09/2020, 10:51. FINDINGS: Right: Thyroid lobe measures 4.8 x 1.8 x 1.7 cm, and is heterogeneous in echotexture. Left: Thyroid lobe measures 4.5 x 1.5 x 1.5 cm, and is heterogeneous in echotexture. Isthmus: 7 mm thick. Nodule number: 1 Location: Left mid Size: 1.0 x 0.6 x 0.9 cm; previously 0.9 x 0.6 x 0.9 cm. Composition: Solid Echogenicity: Hypoechoic Shape: wider than tall. Margins: Smooth Echogenic foci: None Total points: 4 ACR TI-RADS category: 4 Nodule number: 2 Location: Left inferior Size: 1.2 x 1.0 x 1.0 cm; previously 1.5 x 1.0 x 0.8 cm. Composition: Spongiform Echogenicity: Isoechoic Shape: wider than tall. Margins: Ill-defined Echogenic foci: None Total points: 1 ACR TI-RADS category: 1 Previously seen right thyroid nodules are not visualized on the current exam. IMPRESSION: 1. Stable left thyroid nodules. Nodule 1. Is moderately suspicious. Recommend continued ultrasound follow-up. 2. Right thyroid nodules described on the last exam are no longer visualized. 3. Heterogeneous echogenicity of thyroid. Please correlate with thyroid function tests. ACR TI-RADS definitions and recommendations: TI-RADS 1 (benign): 0 points. FNA not needed. TI-RADS 2 (not suspicious): 2 points. FNA not needed. TI-RADS 3 (mildly suspicious): 3 points. * FNA if 2.5 cm or larger, follow up if 1.5 cm or larger (at 1, 3, and 5 years). TI-RADS 4 (moderately suspicious): 4-6 points. * FNA if 1.5 cm or larger, follow up if 1 cm or larger (at 1, 2, 3, and 5 years). TI-RADS 5 (highly suspicious): 7 points or more. * FNA if 1 cm or larger, follow up if 0.5 cm or larger (every year for 5 years). Dictated by: Farheen Loco M.D. on 04/16/2022 at 10:50 Approved by: Farheen Loco M.D. on 04/16/2022 at 10:56
[2022-04-15 11:51] LABS: Alanine Aminotransferase 30 IU/L (<35); Albumin 4.1 g/dL (3.5-5.0); Albumin Globulin Ratio 1.6 (1.0-2.8); Alkaline Phosphatase 45 U/L (38-126); Aspartate Aminotransferase 32 IU/L (14-36); BUN Creatinine Ratio 17.8 (6-22); Bilirubin Total 0.4 mg/dL (0.2-1.3); Blood Urea Nitrogen 13 mg/dL (7-17); Calcium 8.9 mg/dL (8.4-10.2); Carbon Dioxide 31 mmol/L (22-32); Chloride 101 mmol/L (98-107); Estimated Glomerular Filt Rate > 60 mL/min (>60); Globulin 2.5 g/dL (1.7-4.1); Glucose 84 mg/dL (80-110); HEMOLYSIS < 15 (0-50); Phosphorous 3.6 mg/dL (2.8-4.1); Potassium 4.2 mmol/L (3.4-5.1); Sodium 140 mmol/L (137-145); Total Protein 6.6 g/dL (6.3-8.2)
== END ==
PROVIDERS: Referring Provider Internal Medicine Endocrinology, Diabetes & Metabolism; Visit Provider Internal Medicine Endocrinology, Diabetes & Metabolism
DX: Z51.81 Encounter for therapeutic drug level monitoring (principal); M80.00XD Age-related osteoporosis with current pathological fracture, unspecified site, subsequent encounter for fracture with routine healing; E04.1 Nontoxic single thyroid nodule; E04.2 Nontoxic multinodular goiter
CPT/HCPCS: 36415; 76536; 80053; 84100

== ENCOUNTER → 2022-09-02 09:02 | Outpatient (CLI) | payer MEDICARE, OTHER, SELFPAY ==
[2018-06-08 12:08] VITALS: BMI 20.1
[2022-09-02 11:14] LABS: COVID19 -Nasal RAPID Negative (Negative)
== END ==
PROVIDERS: PCP Nurse Practitioner; Visit Provider Surgery
DX: Z20.822 Contact with and (suspected) exposure to COVID-19 (principal); Z01.812 Encounter for preprocedural laboratory examination
CPT/HCPCS: 87635; C9803

== ENCOUNTER 2022-09-03 07:25 | Day surgery (SDC) | payer MEDICARE, OTHER, SELFPAY ==
[2018-06-08 12:08] VITALS: BMI 20.1
[2022-09-03] VITALS (7 sets, daily range): BP systolic 131–156; BP diastolic 61–91; PULSE 56–84; RESP 12–19; TEMP 36.2–37.1; O2SAT 99–100; BMI 21.3
[2022-09-03] MEDS: LACTATED RINGERS 1,000 ML 42 ML IV (09:08)
--- NOTE | 2022-09-03 10:00 | PM.HP.1 ---
History of Present Illness History of Present Illness Chief complaint: [facility] [place] Narrative: Ms. Jacinta Arteaga she has a history of breast cancer and fatty liver but otherwise is pretty healthy. This is her 3rd colonoscope her last 1 was probably about 10 years ago she says. She said that the 1 they had a complete exam but on the 2nd 110 years ago it was a ?abbreviated? exam but nonetheless they did not recommend any sooner follow-up, and she is been getting screening every 10 years. She has a sister who actually got colon cancer at the age of 3636 years old and had to have what sounds like an APR and a permanent colostomy. This is the only family member with colon cancer. Her last colonoscopy she thinks was at [place] with Dr. Michel. She says she is never had any polyps found on colonoscopy. Currently she endorses no alarm symptoms no bleeding diarrhea or constipation. She is had a hysterectomy and some orthopedic surgeries. Of note her at age 74 of a large advanced perforated colon cancer, so she understands the importance of screening. Patient History Medical History (Updated 09/03/22 @ 10:04 by Gwen Robbins MD) Abnormal Pap smear of cervix (2015) Allergic rhinitis Breast cancer (1998) Elevated liver enzymes Fatty liver (2018) History of left breast cancer (1998) HPV in female (2015) Low back strain Mixed hyperlipidemia (05/2020) Normal colonoscopy Oral herpes Osteoarthritis Osteopenia (2014) Osteoporosis Seasonal allergies Serum phosphate elevated Wrist fracture, right (09/2016) Surgical History History of lumpectomy History of surgery on arm (09/2016) History of total abdominal hysterectomy and bilateral salpingo-oophorectomy Hx of cornea transplant (2001) Hx of eye surgery Status post extracapsular cataract extraction of left eye Status post hysterectomy Status post knee surgery Family & Social History Social History: household members none Tobacco & Substance use: Smoking Status Never smoker alcohol intake never Substance Use Type does not use Meds Home Medications and Allergies Home Medications Medication Instructions Recorded Confirmed Type vit C 250 mg-vit E 90 mg-zinc 40 1 tab PO BID ##0 07/19/17 04/27/22 History mg-copper 1 [id number] capsule (PreserVision AREDS-2) calcium carbonate 500 mg calcium 500 mg PO BID 03/29/18 09/03/22 History (1,250 mg) tablet (Calcium 500) denosumab 60 mg/mL subcutaneous 60 mg SUBCUT [id number] osteoporosis 03/29/18 09/03/22 History syringe (Prolia) multivitamin 1 tab PO DAILY 06/13/20 09/03/22 History vitamin D PO DAILY 06/13/20 04/27/22 History rosuvastatin 5 mg tablet 5 mg PO DAILY #90 tabs 04/27/22 09/03/22 Rx Allergies Allergy/AdvReac Type Severity Reaction Status Date / Time Sulfa (Sulfonamide Allergy Severe HIVES Verified 04/27/22 09:37 Antibiotics) [SULFA (SULFONAMIDE ANTIBIOTICS)] Exam Vital Signs (past 8 hours): - 09/03/22 08:58 Temperature 98.2 F Pulse Rate 84 Respiratory Rate 16 Blood Pressure 137/61 Pulse Oximetry 100 Const General: cooperative, healthy appearing and comfortable HENMT Head: normal to inspection Resp Effort & Inspection: normal respiratory effort and able to speak in complete sentences Cardio Pulses: radial pulses present GI Palpation: soft and No tender Assessment & Plan Assessment and plan (1) Colon cancer screening: Status: Acute Assessment & Plan narrative: I discussed the risks benefits and alternatives including but not limited to an incomplete exam and perforation of the colon including anesthesia complications and she understands these risks but would like to proceed. Time Spent With Patient Critical Care time: I spent a total of [] minutes of critical care time on this patient's care today; this time is exclusive of procedural time.
--- NOTE | 2022-09-03 11:14 | P.OP.COLON_ITS ---
Procedure & Clinicians Study performed: Colonoscopy Same procedure as scheduled: Yes Indications: Screening for colon cancer Surgeon: Gwen Robbins Procedure Notes Procedure in detail: Patient was taken to the endoscopy suite and placed in a left lateral decubitus position. Time-out was performed. Conscious sedation was provided by anesthesia provider. A digital rectal exam was performed there were no strictures or masses. The colonoscope was then introduced into the anal canal and advanced through into the cecum. A photograph was obtained of the append iceal orifice. The scope was then withdrawn carefully examining all the surfaces of mucosa. The bowel prep was good it was a [place] bowel prep score of 2. The withdrawal time was 12 minutes total. There were no polyps seen. There were few scattered diverticula in the sigmoid colon. Given a sister with a diagnosis of colon cancer at age 36 usually the recommendation would be a 5 year cycle. Five year follow-up recommended. Complications: none Post-procedure Recommendations: Colonoscopy in 5 years
== END 2022-09-03 12:00 | disposition home or self-care (01) ==
PROVIDERS: Surgery; PCP Nurse Practitioner; Referring Provider Surgery; Visit Provider Surgery
PROC: 0DJD8ZZ Inspection of Lower Intestinal Tract, Via Natural or Artificial Opening Endoscopic (ICD-10-PCS; CPT 45378; principal; 2022-09-03 09:45)
DX: Z12.11 Encounter for screening for malignant neoplasm of colon (principal); K57.30 Diverticulosis of large intestine without perforation or abscess without bleeding
CPT/HCPCS: G0121; J2704

== ENCOUNTER → 2023-04-01 12:05 | Outpatient (CLI) | payer MEDICARE, OTHER, SELFPAY ==
[2018-06-08 12:08] VITALS: BMI 20.1
--- NOTE | 2023-04-01 | DI.MG.S_ITS ---
BILATERAL DIGITAL SCREENING MAMMOGRAM 3D/2D WITH CAD: 04/01/2023 CLINICAL: Routine screening. Personal history of left breast cancer. Comparison is made to exams dated: 11/17/2021 mammogram, 10/28/2020 mammogram, and 10/24/2019 mammogram - [facility]. Both breasts are heterogeneously dense, which may obscure small masses (category c / 51-75% glandular tissue). Current study was also evaluated with a Computer Aided Detection (CAD) system. There are benign calcifications in the left breast. There also are benign post operative findings in the left breast. No significant masses, calcifications, or other findings are seen in either breast. There has been no significant interval change. IMPRESSION: BENIGN There is no mammographic evidence of malignancy. A 1 year screening mammogram is recommended. This exam was interpreted at Station ID: [id number]. NOTE: For mammograms, a report in lay terms will be sent to the patient. Approximately 15% of breast malignancies will not be visualized mammographically. In the management of a palpable breast mass, a negative mammogram must not discourage biopsy of a clinically suspicious lesion. Electronically Signed By: Petra maurice/portillo:04/01/2023 14:23:15 letter sent: Normal Exam ACR BI-RADS Category 2: Benign Finding(s) 3342F
--- NOTE | 2023-04-01 12:06 | DI.RAD.S_ITS ---
Bone Density Report Name: JOSELUIS MCCLENDON Age: 73 Sex: Female Ethnicity: White Date of : 1950 Indication: osteopenia; monitoring treatment; Referring Provider: DANDY SEGOVIA Study: Bone densitometry was performed. Exam Date: April 01, 2023 Accession number: [id number] Bone Density: Region BMD T-score Z-score Classification AP Spine(L1) 0.798 -1.7 0.2 Osteopenia Femoral Neck (Left) 0.655 -1.7 0.2 Osteopenia Total Hip (Left) 0.701 -2.0 -0.4 Osteopenia Total Forearm (Left) 0.567 -0.2 1.9 Normal 1/3 Forearm (Left) 0.682 -0.2 2.1 Normal UD Forearm (Left) 0.371 -1.2 0.4 Osteopenia World Health Organization criteria for BMD impression classify patients as: Normal (T-score at or above -1.0), Osteopenia (T-score between -1.0 and -2.5), or Osteoporosis (T-score at or below -2.5). 10-year Fracture Risk: FRAX not reported because: Treated for osteoporosis Previous Exams: -- Region Exam Age BMD T-score BMD Change BMD Change Date g/cm2 vs Baseline vs Previous -- AP Spine (L1) 04/01/2023 73 0.798 -1.7 0.078 (10.8%)# 0.078 (10.8%)# 03/31/2021 71 0.720 -1.9 Total Hip(Left) 04/01/2023 73 0.701 -2.0 0.018 (2.7%)# 0.018 (2.7%)# 03/31/2021 71 0.682 -2.1 -- *Denotes significance at 95% confidence level, LSC for AP Spine = 0.022 g/cm2, LSC for Total Hip = 0.027 g/cm2 # Denotes dissimilar scan types or analysis methods Impression: The patient has low bone mass, based on the Left Total Hip T-score. No significant bone loss was observed. Discussion: PATIENT UNDER TREATMENT WITH NO SIGNIFICANT BMD LOSS SINCE LAST EXAM. In an untreated patient, BMD typically declines with age. A lack of decline or gain is usually a sign that treatment is efficacious and fracture risk is reduced. It is important to ask patients whether they are taking their medications and to encourage continued and appropriate compliance with their osteoporosis therapies to reduce fracture risk. It is also important to review their risk factors and encourage appropriate calcium and vitamin D intakes, exercise, fall prevention and other lifestyle measures. Follow-Up: Consider a repeat BMD and Vertebral Fracture Assessment (VFA) exam in 2 years or sooner if medically necessary, to reassess this patient's status. Reported by: DRAKE LYN M.D. on 04/01/2023 12:57:00 PM.
== END ==
PROVIDERS: PCP Nurse Practitioner; Referring Provider Nurse Practitioner; Visit Provider Nurse Practitioner
DX: M81.0 Age-related osteoporosis without current pathological fracture (principal); Z12.31 Encounter for screening mammogram for malignant neoplasm of breast; Z78.0 Asymptomatic menopausal state; Z85.3 Personal history of malignant neoplasm of breast; Z79.83 Long term (current) use of bisphosphonates; Z90.710 Acquired absence of both cervix and uterus
CPT/HCPCS: 77063; 77067; 77080

== ENCOUNTER → 2023-06-14 15:11 | Outpatient (CLI) | payer MEDICARE, OTHER, SELFPAY ==
[2018-06-08 12:08] VITALS: BMI 20.1
[2023-06-14 18:20] LABS: Alanine Aminotransferase 26 IU/L (<35); Albumin 4.2 g/dL (3.5-5.0); Albumin Globulin Ratio 1.4 (1.0-2.8); Alkaline Phosphatase 41 U/L (38-126); Aspartate Aminotransferase 33 IU/L (14-36); BUN Creatinine Ratio 20.3 (6-22); Bilirubin Total 0.2 mg/dL (0.2-1.3); Blood Urea Nitrogen 15 mg/dL (7-17); Calcium 9.6 mg/dL (8.4-10.2); Carbon Dioxide 30 mmol/L (22-32); Chloride 100 mmol/L (98-107); Cholesterol 163 mg/dL (140-199); Estimated Glomerular Filt Rate > 60 mL/min (>60); Globulin 2.9 g/dL (1.7-4.1); Glucose 87 mg/dL (80-110); HDL Cholesterol 50 mg/dL (40-60); HEMOLYSIS < 15 (0-50); LDL Cholesterol Calculated 80 mg/dL (<100); Potassium 3.9 mmol/L (3.4-5.1); Sodium 137 mmol/L (137-145); Total Protein 7.1 g/dL (6.3-8.2); Triglycerides 167 mg/dL (35-150)
[2023-06-14 18:39] LABS: Free T3, Triiodothyronine Free 3.61 pg/mL (2.77-5.27)
[2023-06-14 20:03] LABS: Creatinine Urine Random 178.4 mg/dL
[2023-06-14 20:06] LABS: Microalbumi Creatinin Ratio Ur 6.7 ug/mg CR (<30); Microalbumin Urine Random 1.2 mg/dL (0-1.6)
== END ==
PROVIDERS: PCP Nurse Practitioner; Referring Provider Nurse Practitioner; Visit Provider Nurse Practitioner
DX: K76.0 Fatty (change of) liver, not elsewhere classified (principal); E78.2 Mixed hyperlipidemia; M81.0 Age-related osteoporosis without current pathological fracture; Z79.899 Other long term (current) drug therapy
CPT/HCPCS: 36415; 80053; 80061; 82043; 82570; 84439; 84443; 84481

== ENCOUNTER → 2023-11-15 16:12 | Outpatient (CLI) | payer MEDICARE, OTHER, SELFPAY ==
[2018-06-08 12:08] VITALS: BMI 20.1
--- NOTE | 2023-11-15 16:16 | DI.RAD.S_ITS ---
PROCEDURE: XR SHOULDER RT MIN 2V INDICATIONS: Right shoulder pain TECHNIQUE: 3 views of the shoulder were acquired. COMPARISON: None. FINDINGS: Bones: No fractures or dislocations. No suspicious bony lesions. Visualized ribs appear intact. Soft tissues: No suspicious soft tissue calcifications. IMPRESSION: No acute bony abnormality. If symptoms persist with conservative management, consider cross-sectional imaging such as CT or MRI. Approved by: Carrie Bender M.D. on 11/15/2023 at 22:52
== END ==
LOC: RAD 16:15
PROVIDERS: PCP Nurse Practitioner; Referring Provider Physician Assistant; Visit Provider Physician Assistant
DX: M25.511 Pain in right shoulder (principal)
CPT/HCPCS: 73030

== ENCOUNTER → 2024-02-14 08:52 | Outpatient (CLI) | payer MEDICARE, OTHER, SELFPAY ==
[2018-06-08 12:08] VITALS: BMI 20.1
[2024-02-14 10:11] LABS: Alanine Aminotransferase 37 IU/L (<35); Albumin 3.9 g/dL (3.5-5.0); Albumin Globulin Ratio 1.6 (1.0-2.8); Alkaline Phosphatase 49 U/L (38-126); Aspartate Aminotransferase 38 IU/L (14-36); Bilirubin Total 0.4 mg/dL (0.2-1.3); Blood Urea Nitrogen 17 mg/dL (7-17); Calcium 8.6 mg/dL (8.4-10.2); Carbon Dioxide 28 mmol/L (22-32); Chloride 108 mmol/L (98-107); Cholesterol 152 mg/dL (140-199); Estimated Glomerular Filt Rate > 60 mL/min (>60); Globulin 2.4 g/dL (1.7-4.1); Glucose 89 mg/dL (80-110); HDL Cholesterol 53 mg/dL (40-60); HEMOLYSIS < 15 (0-50); LDL Cholesterol Calculated 70 mg/dL (<100); Potassium 3.9 mmol/L (3.4-5.1); Sodium 140 mmol/L (137-145); Total Protein 6.3 g/dL (6.3-8.2); Triglycerides 147 mg/dL (35-150)
[2024-02-14 10:27] LABS: Free T3, Triiodothyronine Free 3.26 pg/mL (2.77-5.27); Free T4, Direct Thyroxine 0.89 ng/dL (0.78-2.19)
[2024-02-14 10:40] LABS: Thyroid Stimulating Hormone 1.34 uIU/mL (0.47-4.68)
== END ==
LOC: LAB 08:53
PROVIDERS: PCP Nurse Practitioner; Referring Provider Nurse Practitioner; Visit Provider Nurse Practitioner
DX: K76.0 Fatty (change of) liver, not elsewhere classified (principal); E78.2 Mixed hyperlipidemia; M85.89 Other specified disorders of bone density and structure, multiple sites; Z79.899 Other long term (current) drug therapy
CPT/HCPCS: 36415; 80053; 80061; 84439; 84443; 84481

== ENCOUNTER → 2024-02-28 10:56 | Outpatient (CLI) | payer MEDICARE, OTHER, SELFPAY ==
[2018-06-08 12:08] VITALS: BMI 20.1
--- NOTE | 2024-02-28 10:58 | DI.US.S_ITS ---
PROCEDURE: US ABDOMEN LIMITED INDICATIONS: monitor heptatic steatosis TECHNIQUE: Real-time focused scanning was performed of the abdomen, with image documentation. COMPARISON: [facility], US, US ABDOMEN COMPLETE, 04/13/2019, 9:28. FINDINGS: Liver measures 12.4 cm. Multiple simple cysts are present largest on the left measuring 6.4 cm x 4.7 cm x 7 cm and largest on the right measuring 6.3 x 4.8 x 5.8 cm. They have increased compared to 3.7 x 3.7 x 3.6 cm and 5.0 x 4.2 x 3.0 cm in 2019. Gallbladder demonstrates a single mobile focus of echogenicity consistent with stone. No wall thickening. Common bile duct measures 5.8 mm. IMPRESSION: Cholelithiasis. Simple hepatic cysts, increased in size. Dictated by: Lashae Queen M.D. on 02/28/2024 at 15:01 Approved by: Lashae Queen M.D. on 02/28/2024 at 15:03
== END ==
PROVIDERS: PCP Nurse Practitioner; Referring Provider Nurse Practitioner; Visit Provider Nurse Practitioner
DX: R93.5 Abnormal findings on diagnostic imaging of other abdominal regions, including retroperitoneum (principal); K76.0 Fatty (change of) liver, not elsewhere classified; K80.20 Calculus of gallbladder without cholecystitis without obstruction; K76.89 Other specified diseases of liver
CPT/HCPCS: 76705

== ENCOUNTER → 2024-04-05 12:43 | Outpatient (CLI) | payer MEDICARE, OTHER, SELFPAY ==
[2018-06-08 12:08] VITALS: BMI 20.1
--- NOTE | 2024-04-05 | DI.MG.S_ITS ---
BILATERAL DIGITAL SCREENING MAMMOGRAM 3D/2D WITH CAD: 04/05/2024 CLINICAL: Routine screening. Personal history of left breast cancer. Comparison is made to exams dated: 04/01/2023 mammogram, 11/17/2021 mammogram, and 10/28/2020 mammogram - [facility]. Both breasts are heterogeneously dense, which may obscure small masses (category c / 51-75% glandular tissue). Current study was also evaluated with a Computer Aided Detection (CAD) system. There are benign calcifications in the left breast. There also are benign post operative findings in the left breast. No significant masses, calcifications, or other findings are seen in either breast. There has been no significant interval change. IMPRESSION: BENIGN There is no mammographic evidence of malignancy. A 1 year screening mammogram is recommended. This exam was interpreted at Station ID: [id number]. NOTE: For mammograms, a report in lay terms will be sent to the patient. Approximately 15% of breast malignancies will not be visualized mammographically. In the management of a palpable breast mass, a negative mammogram must not discourage biopsy of a clinically suspicious lesion. Electronically Signed By: Arthur daly/portillo:04/05/2024 16:20:47 letter sent: Normal Exam ACR BI-RADS Category 2: Benign Finding(s) 3342F
== END ==
PROVIDERS: PCP Nurse Practitioner; Referring Provider Nurse Practitioner; Visit Provider Nurse Practitioner
DX: Z12.31 Encounter for screening mammogram for malignant neoplasm of breast (principal); Z85.3 Personal history of malignant neoplasm of breast; R92.333 Mammographic heterogeneous density, bilateral breasts
CPT/HCPCS: 77063; 77067

== ENCOUNTER → 2025-01-30 10:22 | Outpatient (CLI) | payer MEDICARE, OTHER, SELFPAY ==
[2018-06-08 12:08] VITALS: BMI 20.1
--- NOTE | 2025-01-30 10:49 | EKG_ITS ---
[address] [address] Test Date: 2025-01-30 Pat Name: Jacinta Arteaga Department: [facility] Room: Gender: Female Set Up / Operator: JAQUELINE : 1950 Requested By: Order Number: [id number] Reading MD: Patrick Newman Measurements Intervals [place] Rate: 78 P: 76 FL: 170 QRS: 26 QRSD: 72 T: 35 QT: 376 QTc: 428 Interpretive Statements Normal sinus rhythm Electronically Signed On 01-31-2025 17:29:58 PDT by Patrick Newman
[2025-01-30 11:02] LABS: Add Manual Diff / Slide Review NO; Basophils Absolute Auto 100 /uL (0-100); Basophils Percent Auto 1.3 % (0-2); Eosinophils Absolute Auto 200 /uL (0-450); Eosinophils Percent Auto 4.1 % (2-4); Hematocrit 37.7 % (36-46); Hemoglobin 12.6 g/dL (12.0-16.0); Lymphocytes Absolute Auto 1200 /uL (1100-4500); Mean Corpuscular HGB Conc 33.5 % (30-36); Mean Corpuscular Hemoglobin 30.5 PG (26-34); Monocytes Absolute Auto 500 /uL (0-900); Monocytes Percent Auto 10.4 % (3-14); Neutrophils Absolute Auto 2700 /uL (1500-7000); Neutrophils Percent Auto 58.2 % (50-75); Platelet Count 177 X10^3/uL (150-400); Red Blood Cell Count 4.14 X10^6/uL (4.0-5.2); Red Cell Distribution Width 13.1 % (11.6-14.8); White Blood Cell Count 4.7 X10^3/uL (4.5-11.0)
[2025-01-30 11:09] LABS: Hemoglobin A1C% w Est Avg Glu 4.9 % (4.0-6.0)
[2025-01-30 11:13] LABS: BUN Creatinine Ratio 24.7 (6-22); Blood Urea Nitrogen 18 mg/dL (7-17); Calcium 9.5 mg/dL (8.4-10.2); Carbon Dioxide 28 mmol/L (22-32); Chloride 103 mmol/L (98-107); Estimated Glomerular Filt Rate > 60 mL/min (>60); Glucose 90 mg/dL (70-99); HEMOLYSIS < 15 (0-50); Potassium 4.2 mmol/L (3.4-5.1); Sodium 137 mmol/L (137-145)
[2025-01-30 12:14] LABS: Appearance Urine UA CLOUDY; Bilirubin Urine UA NEGATIVE (NEGATIVE); Color Urine UA YELLOW; Glucose Urine UA NEGATIVE (Negative); Ketones Urine UA NEGATIVE (NEGATIVE); Leukocyte Esterase Urine UA 1+ (NEGATIVE); Nitrite Urine UA POSITIVE (Negative); Occult Blood Urine UA NEGATIVE (Negative); Protein Urine UA NEGATIVE (Negative); Urobilinogen Urine UA 0.2 E.U./dL (0.2)
[2025-01-30 12:18] LABS: Bacteria Urine Moderate (10-30); Culture Indicated Urine Specimen Cultured; RBC Urine None Seen (0-5/HPF); Squamous Epithelial Cell Urine None Seen (0-5/HPF); Urine Volume 10mL (spun); WBC Urine 5-10/HPF (0-5/HPF)
== END ==
PROVIDERS: PCP Student in an Organized Health Care Education/Training Program; Referring Provider Orthopaedic Surgery; Visit Provider Orthopaedic Surgery
DX: Z01.818 Encounter for other preprocedural examination (principal); N39.0 Urinary tract infection, site not specified; R73.9 Hyperglycemia, unspecified; Z01.812 Encounter for preprocedural laboratory examination
CPT/HCPCS: 36415; 80048; 81001; 83036; 85025; 87077; 87086; 87186; 93005

== ENCOUNTER 2025-03-27 11:41 | Day surgery (SDC) | payer MEDICARE, OTHER, SELFPAY ==
[2018-06-08 12:08] VITALS: BMI 20.1
[2025-03-18 12:13] VITALS: BMI 22.0
[2025-03-27] VITALS (11 sets, daily range): BP systolic 108–132; BP diastolic 53–71; PULSE 66–89; RESP 12–20; TEMP 36.2–36.7; O2SAT 97–100; BMI 22.0
--- NOTE | 2025-03-27 | DI.RAD.S_ITS ---
PROCEDURE: XR HIP W PEL IF DONE LT 2V INDICATIONS: INTRA OP LEFT HIP TECHNIQUE: AP pelvis with lateral view(s) of the right hip(s). COMPARISON: [facility], L[facility], XR HIP W PEL IF DONE RT 2V, 06/08/2018, 11:25. FINDINGS: Bones: There are no osseous abnormalities. SI and hip joints: Left total hip prostheses is anatomically aligned. Prosthetic femoral head appears to yet to be placed Soft tissues: No soft tissue swelling, calcification or mass. IMPRESSION: Left hip prostheses in anatomic alignment. Absent left femoral head Dictated by: Luis Enrique Calderon M.D. on 03/28/2025 at 12:27 Approved by: Luis Enrique Calderon M.D. on 03/28/2025 at 12:28
--- NOTE | 2025-03-27 06:00 | DI.RAD.S_ITS ---
PROCEDURE: XR HIP W PEL IF DONE LT 2V INDICATIONS: DANIKA TECHNIQUE: AP pelvis and lateral view of the hip acquired. COMPARISON: [facility], CR, XR HIP W PEL IF DONE RT 2V, 06/08/2018, 11:25. [facility], CR, XR HIP W PEL LT 2V, 03/27/2025, 15:39. [facility], CR, XR PELVIS WITH LATERAL HIP LEFT, 01/30/2025, 8:37. FINDINGS: Bones: Patient is status post left hip arthroplasty, with hardware components in expected positions. The hip joint appears congruent. The visualized bony structures appear intact. Previously placed right hip arthroplasty hardware is also seen. Age-appropriate lower lumbar spine degenerative changes are noted. Soft tissues: Overlying postoperative changes are noted. No suspicious soft tissue densities. Pelvic phleboliths are incidentally noted. IMPRESSION: Expected post-operative appearance of a hip arthroplasty. Dictated by: Hebert Hernandez M.D. on 03/27/2025 at 16:40 Approved by: Hebert Hernandez M.D. on 03/27/2025 at 16:41
[2025-03-27] MEDS: ACETAMINOPHEN 325 MG TABLET 975 MG PO (12:44)
[2025-03-27] MEDS: CELECOXIB 200 MG CAPSULE PO (12:44)
[2025-03-27] MEDS: VANCOMYCIN 1,000 MG in SODIUM CHLORIDE 0.9% 250 ML 250 MG IV (12:47)
[2025-03-27] MEDS: LACTATED RINGERS 1,000 ML 42 ML IV ×2 (12:48→15:50)
--- NOTE | 2025-03-27 14:18 | PM.PREOP ---
Pre-operative Note Interval Note History & Physical reviewed/Exam performed by Physician: Yes Changes to H&P: No
--- NOTE | 2025-03-27 14:19 | P.OP_ITS ---
Operative Date/Time/Diagnoses Date of procedure: 03/27/25 Time of procedure: 14:50 Pre-op diagnosis: Left hip OA Post-op diagnosis: same Procedure & Clinicians Procedure: Left total hip arthroplasty anterior approach Same procedure(s) as scheduled: Yes Indications: The patient has had progressively worsening left hip pain with radiographic c hanges consistent with arthritis. Non-operative management has failed and the patient has requested total hip replacement. The risks, benefits and alternatives to surgery were discussed with the patient prior to proceeding. Risks discussed included, but were not limited to, failure to relieve pain, leg length discrepancy, dislocation, stiffness, infection, nerve damage, deep venous thrombosis, pulmonary embolism, stroke, coma, heart attack, permanent paralysis and , as well as the potential need for eventual revision of the prosthetic. Surgeon: Keily Garcia Turret Lathe Set Up Operator: Francisco J Johnson Anesthesia Type: General and Spinal Operative Notes Findings: Severe left hip OA, adequate bone, adequate stability Closure Type: primary Specimen(s): none sent Prosthetic devices, grafts, tissues, transplants, or devices: Garcia and nephew R3 50 mm, neutral poly liner,one 6.5 mm screw, anthology standard offset size 4, 36 x +0 femoral head Applied: none Estimated Blood Loss (mL): 250 Blood products transfused: none Procedure in detail: The patient was brought to the operating room. Patient was carefully positioned in the supine position. Time-out was performed and antibiotics were given. Anesthesia was induced. She was positioned in the on the table in order to allow hyperextension of the hip. The left lower extremity was prepped and draped in a standard sterile fashion. An anterior left hip incision was made 1 fingerbreadth lateral to the anterior superior iliac spine and extended distally towards the greater trochanter. Dissection was carried out through skin and subcutaneous tissues. Superficial hemostasis was achieved. The fascia over the tensor fascia barry was defined and incised with a knife. Two Allis clamps were used to grasp the fascia. Tensor fascia barry was retracted laterally. A gelpi retractor was placed. Dissection was carried out down along the neck. The circumflex vessels were carefully identified and cauterized with the Aqua Mantis. PA was used during this procedure and was essential for intraoperative retraction and safe implantation of the components. There was good visualization of the femoral neck. A Cobra was placed superior to the neck and the gluteus fibers were carefully stripped from that superior aspect of the capsule. A 2nd retractor was placed along the inferior aspect of the neck. The rectus insertion along the capsule was partially released. A 3rd retractor that was then gently placed over the rim of the acetabulum under the rectus. Capsule was carefully incised and released from the intertrochanteric line circumferentially superior to the mid sagittal line and inferiorly to the mid sagittal line until the lesser trochanter was palpable. A tag stitch was placed both in the superior and inferior limb of the capsular insertion. Along the acetabulum capsule was also released up to the mid sagittal 12:00 position. A portion of the labrum was resected. A saw was used to perform an osteotomy at the level of the intertrochanteric line and the junction of the superior femoral neck leaving approximately 1 finger breath of residual inferior neck above the lesser trochanter. A 2nd cut was made along the femoral neck at the base of the head and a napkin ring of neck was removed. Corkscrew was placed in the femoral head and the head was removed without difficulty. Retractors were then repositioned around the acetabulum. Residual labrum was resected and additional osteophytes were removed. A reamer that was 4 mm below the templated size was placed by hand in the acetabulum and it was reamed to centralize the acetabulum. It was then reamed up to 2 under the templated size and fluoroscopy was brought in to confirm the position of the reaming and depth of reaming. I reamed 1 under the anticipated size. A trial cup was placed and noted that it was appropriately sized and fluoroscopy confirmed position and depth. The component was open and inserted without difficulty fluoroscopic imaging was used to confirm that the cup had been adequately seated and was well positioned. It was further stabilized with a single screw. Neutral poly liner was placed. The cup was tested and noted to be stable. Attention was then directed to the femur. The femur was gently hyperextended additional capsular release was performed as needed in order to allow adequate visualization of the proximal femur with elevation of the femur. Patient was placed in a hyperextended slightly adducted position with maximum external rotation. Box osteotome was used to check for any residual neck as well as sclerotic bone along the trochanter. Serena pepper was placed in the femur. Additional broaching was performed. Canal finder was used to determine the alignment of the canal and position. Size 1 broach was placed. The canal was then appropriately broached up to the templated size as long as there was adequate stability of the broach and serial advancement of the broach without excessive impingement. Specific attention was directed at avoiding varus attempting to direct the distal aspect of the broach more anteriorly and avoiding excessive anteversion. Trial reduction showed acceptable range of motion, good stability, no posterior impingement, episcopal of leg length and appropriate lateral shuck. I also hyperflexed the hip and checked that there was no impingement anteriorly and there was good stability with flexion, adduction and internal rotation. Marcaine and Exparel were injected. The stem was placed without difficulty. Repeat trial reduction and x-ray showed acceptable overall position, length, and no evidence of the femoral fracture. Final head was placed. Wound was meticulously irrigated with normal saline. The hip was reduced and additional Exparel and Marcaine were injected. The capsule was closed with interrupted nonabsorbable sutures. The fascia of the tensor was closed with interrupted and running Vicryl. No drain was placed. Any tensor fascia barry muscle that appeared to be contused or injured which was a minimal amount was carefully resected. Capsule around the tensor was injected with Exparel and Marcaine. The skin was closed with barbed stitches for the subcutaneous tissue and skin. We also used surgical glue. The wound was dressed sterilely. Brief Betadine soak was also used and was meticulously irrigated with normal saline. Patient was transferred to recovery room in satisfactory condition. Complications: none Post-operative Condition: stable Disposition: Acute Care Plan for aftercare: The patient will be maintained on a standard total hip replacement protocol with weight bearing as tolerated and anterior hip precautions. The patient will receive Aspirin and sequential compression devices for DVT prophylaxis. The patient will be discharged home when safe for the home environment.
[2025-03-27] MEDS: CEFAZOLIN 2 GM/100 ML PREMIX 100 ML IV ×2 (14:30→21:42)
[2025-03-27] MEDS: TRANEXAMIC ACID 1,000 MG VIAL 1000 MG INJ ×2 (14:40→16:20)
--- NOTE | 2025-03-27 15:04 | SUR.OPER ---
Supine on padded [place] table with bilateral legs secured in padded positioning boots and suspended in positioning spars, operative leg in traction per surgeon. Head on one pillow. Arm on non-operative side secured on padded armboard <90 degrees abduction. Arm on operative side padded and resting across chest then secured with tape over sheet. Padded perineal post in place per surgeon.
[2025-03-27] MEDS: BUPIVACAINE 0.25% W/ EPI 30 ML VIAL 60 ML INJ (15:14)
[2025-03-27] MEDS: BUPIVACAINE LIPOSOME 266 MG/20 ML VIAL INJ (15:15)
--- NOTE | 2025-03-27 18:40 | PC.NURSE ---
Pt arrived A/O Denies discomfort at this time. Aquacell dsg to anterior left hip CDI IVF infusing as per MD orders. into RFA w/o incidence. Pt oriented to room & call system. Call light w/in reach, pt calls appropriately for needs. Continue w/plan of care.
[2025-03-27] MEDS: ACETAMINOPHEN 325 MG TABLET 650 MG PO (21:41)
[2025-03-27] MEDS: CALCIUM CARBONATE 500 MG TAB PO (21:41)
[2025-03-27] MEDS: ATORVASTATIN 20 MG TABLET 10 MG PO (21:41)
[2025-03-27] MEDS: DOCUSATE 100 MG CAPSULE PO (21:42)
[2025-03-27] MEDS: ASPIRIN EC 81 MG TABLET PO (21:42)
[2025-03-27] MEDS: LACTATED RINGERS 1,000 ML 100 ML IV (22:51)
[2025-03-28] MEDS: CEFAZOLIN 2 GM/100 ML PREMIX 100 ML IV (02:10)
[2025-03-28 05:21] LABS: Hematocrit 28.2 % (36-46); Hemoglobin 9.8 g/dL (12.0-16.0)
[2025-03-28] MEDS: CALCIUM CARBONATE 500 MG TAB PO (08:02)
[2025-03-28] MEDS: ASPIRIN EC 81 MG TABLET PO (08:03)
[2025-03-28] MEDS: DOCUSATE 100 MG CAPSULE PO (08:03)
[2025-03-28] MEDS: ACETAMINOPHEN 325 MG TABLET 650 MG PO (08:03)
--- NOTE | 2025-03-28 09:15 | PM.DS.1 ---
History of Present Illness History of Present Illness Date Patient Seen: 03/28/25 Time Patient Seen: 09:15 Chief complaint: OPB Left DANIKA Anterior Narrative: She had severe left hip OA. She was taken the operating room and underwent an anterior left total hip arthroplasty. Discharge Providers Provider Discharge Date: 03/28/25 Primary care physician: Dixie Carvalho MD Consults: 03/27/25 06:00 Consult to Anesthesiology Routine Comment: Consulting Provider: Anesthesiologist Reason for consultation: Regional block for post operative pain control Has provider been notified: No 03/27/25 17:54 Consult to Discharge Planning Routine Comment: 03/27/25 18:12 Consult to Occupational Therapy Evaluate & Treat Comment: Physician Instructions: Evaluate and treat Consult to Physical Therapy Evaluate & Treat Comment: Physician Instructions: post op DANIKA protocol Discharge provider: Keily Garcia MD Summary Hospital Course Discharge Diagnosis: Left hip OA. Left total hip arthroplasty Hospital Course: She was taken the operating room she underwent a left total hip arthroplasty. She tolerated the procedure well. She worked with Physical therapy and was cleared for discharge to home. Status at Discharge Cognitive/behavioral status at discharge: oriented Functional status at discharge: uses cane/walker Overall status at discharge: patient is progressing back to baseline Time Spent with Patient Time spent: Less than 30 minutes Exam Vital Signs (past 8 hours): Oxygen Delivery Method Room Air Oxygen Flow Rate 0 Narrative Exam Narrative: She is getting out of bed she is comfortable her dressing is dry she was neurologically intact distally she can fire hip flexor and quad without difficulty, her calves are soft bilaterally Objective Labs 03/28/25 04:26 Labs: Laboratory Results - last 24 hr 03/28/25 04:26 Hgb 9.8 L Hct 28.2 L PFSH Medical History (Updated 10/08/24 @ 13:06 by Dixie Carvalho MD) Thyroid nodule Oral herpes Fatty liver (2018) Mixed hyperlipidemia (05/2020) Serum phosphate elevated Elevated liver enzymes History of left breast cancer (1998) Low back strain Normal colonoscopy Seasonal allergies Osteoporosis Osteopenia (2014) Wrist fracture, right (09/2016) Osteoarthritis Allergic rhinitis HPV in female (2015) Abnormal Pap smear of cervix (2015) Breast cancer (1998) Surgical History (Updated 03/18/25 @ 13:06 by Nilsa Guerra RN) History of total right hip replacement (2017) S/P thyroid biopsy Hx of colonoscopy Hx of eye surgery Status post extracapsular cataract extraction of left eye History of total abdominal hysterectomy and bilateral salpingo-oophorectomy Hx of cornea transplant (2001) History of surgery on arm (09/2016) History of lumpectomy Status post knee surgery Status post hysterectomy Social History household members: family Smoking Status: Never smoker second hand exposure: No alcohol intake: never substance use type: does not use Discharge Assessment & Plan Assessment and Plan Assessment: Doing well postoperatively. Discharge Plan Discharge Plan Patient Disposition: Home Discharge orders & Medications Discharge Orders: Discharge (Order); Ordered 03/28/25 Ordered By: Keily Garcia Prescriptions: New acetaminophen 325 mg Tablet 650 mg PO Q6H Qty: 90 0RF polyethylene glycol 3350 17 gram Powder In Packet 17 gm PO DAILY PRN (Reason: Constipation) Qty: 14 0RF aspirin 81 mg Tablet,Delayed Release (Dr/Ec) 81 mg PO BID Qty: 90 0RF ibuprofen 400 mg Tablet 400 mg PO Q4H PRN (Reason: Pain, Mild (1-3)) Qty: 90 0RF oxycodone 5 mg Tablet 5 mg PO Q3H PRN (Reason: Pain, Moderate (4-6)) Qty: 30 0RF Continued calcium carbonate [Calcium 500] 500 mg calcium (1,250 mg) tablet 500 mg PO BID PreserVision AREDS-2 [id number] Capsule 1 tab PO BID Qty: 0 rosuvastatin 5 mg tablet 5 mg PO ONCE PM Qty: 90 3RF (DME) vitamin D 0 .ROUTE .MEDSUPPLY multivitamin Tablet 1 tab PO DAILY coenzyme Q10 100 mg capsule 100 mg PO DAILY Follow up/Referrals: Dixie Carvalho MD [Primary Care Provider, Family Practice] Diet/Activity/Treatments Diet: Diet as Tolerated Activity: Ambulate multiple times a day. Use a cane or walker as needed. Try to avoid falls. Cold/Heat Therapy: Use ice multiple times a day. Other treatments: Take 81 mg aspirin to prevent a blood clot. Skin/Wound/Dressing Care Skin care: Okay to shower. Report to your healthcare provider any signs of infection, such as:: chills, fever, night sweats, increased pain, unusual drainage and unusual redness Dressing: Leave dressing on. Visit Report/Discharge Packet Instructions: DI for Hip Replacement, DI for Prescription Opioid Use Stand Alone Forms: Patient Portal/API Print Language: Zimbabwean Discharge Data Primary Care Provider: Dixie Carvalho Attending Provider: Keily Garcia VTE Deep Vein Thrombosis/Pulmonary Embolism Present on Admission: No
--- NOTE | 2025-03-28 09:36 | OT.IP.EVAL ---
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) Surgery Performed Operation Date: 03/27/25 13:45 Actual Procedures p Total Hip Arthroplasty/Anterior Approach(Left) - Keily Garcia MD Past Medical History (Last Updated 10/08/24 @ 13:06 by Dixie Carvalho MD) Abnormal Pap smear of cervix (2015) Allergic rhinitis Breast cancer (1998) Elevated liver enzymes Fatty liver (2018) History of left breast cancer (1998) HPV in female (2015) Low back strain Mixed hyperlipidemia (05/2020) Normal colonoscopy Oral herpes Osteoarthritis Osteopenia (2014) Osteoporosis Seasonal allergies Serum phosphate elevated Thyroid nodule Wrist fracture, right (09/2016) Surgical History (Last Updated 03/18/25 @ 13:06 by Nilsa Guerra RN) History of lumpectomy History of surgery on arm (09/2016) History of total abdominal hysterectomy and bilateral salpingo-oophorectomy History of total right hip replacement (2017) Hx of colonoscopy Hx of cornea transplant (2001) Hx of eye surgery S/P thyroid biopsy Status post extracapsular cataract extraction of left eye Status post hysterectomy Status post knee surgery Occupational Therapy Inpatient Evaluation/Re-Eval M1 PT/OT-IP Prior Functional Status Start: 03/28/25 08:45 Freq: NEEDED Status: Active Protocol: Document 03/28/25 08:55 MB (Rec: 03/28/25 09:44 MB Desktop) Medical Review Prior Functional Status Medical History Yes Reviewed Communication WNLs Mobility and Gait I, takes care of her mother who has low vision. Her sister is arriving to assist her and her mother at d/c. Activities of Daily I Living and IADL's Prior Functional I, drives, is caregiver for her mother Level (Other details ) Social History Household Members family Living Arrangements House Number of Floors ( One Floor Floors) Number of Stairs To 2 steps with grab bars on both sides she can reach to Enter/Railing? enter home Home Environment Standard Height Toilet,Walk in Shower Home Equipment Front Wheel Walker,Straight Cane,Shower Seat with Backrest Employment Status Retired M1 PT/OT-IP Prior Functional Status Start: 03/28/25 11:29 Freq: NEEDED Status: Active Protocol: Document 03/28/25 11:30 [facility] (Rec: 03/28/25 11:40 [facility] Desktop) Medical Review Prior Functional Status Medical History Yes Reviewed Communication WNLs Mobility and Gait I, takes care of her mother who has low vision. Her sister is arriving to assist her and her mother at d/c. Activities of Daily I Living and IADL's Prior Functional I, drives, is caregiver for her mother Level (Other details ) Social History Household Members family Living Arrangements House Number of Floors ( One Floor Floors) Number of Stairs To 2 steps with grab bars on both sides she can reach to Enter/Railing? enter home Home Environment Standard Height Toilet,Walk in Shower Home Equipment Front Wheel Walker,Straight Cane,Shower Seat with Backrest,Long Handled Shoe Horn,Gmat Instructor,Sock Aid Employment Status Retired M2 OT-IP Current Condition Start: 03/28/25 11:29 Freq: Status: Active Protocol: Document 03/28/25 11:30 [facility] (Rec: 03/28/25 11:40 [facility] Desktop) Occupational Therapy Current Condition Current Condition Evaluation Date 03/28/25 Treatment Diagnosis S/P L DANIKA Anterior Diagnosis Onset Date 03/27/25 Post Operative Precautions Other Precautions NO hyperextension left hip Weight Bearing Status Weight Bearing Weight Bear as Tolerated Status M3 OT- IP Subjective and Pain Start: 03/28/25 11:29 Freq: Status: Active Protocol: Document 03/28/25 11:30 [facility] (Rec: 03/28/25 11:40 [facility] Desktop) OT- Subjective Occupational Therapy Visit Type Type Initial Evaluation Visit Start Time 09:11 Visit Stop Time 09:36 Occupational Therapy Visit Comments Patient Comments Pt wanting to shower. Patient/Caregiver TO go home Goals OT Pain Assessment Pain When Pain Assessed At Rest Pain Present Pain Present Pain Reported Location Left Hip Intensity 4 Scale Used Numeric (0 - 10) M4 OT- IP ADL's Start: 03/28/25 11:29 Freq: Status: Active Protocol: Document 03/28/25 11:30 [facility] (Rec: 03/28/25 11:40 [facility] Desktop) OT [id number]-[id number] General Evaluation Self-Feeding Ability Independent OT ADL-Grooming General Evaluation Grooming Ability Independent OT ADL-Oral Care General Eval Oral Care Ability Independent OT ADL-Dressing General Eval Upper Body Dressing Independent Ability Lower Body Dressing Standby Assistance Ability Areas Needing Retrieving/Set-up of Clothing Assistance Comments OT Dressing Comments Able to practice use of sock aid and mask designer. Educated to dress her LLE first and take out last. OT ADL-Toileting General Evaluation Toileting Ability Standby Assistance OT ADL-Bathing Bathing Type Bathing Type Shower General Evaluation Bathing Ability Minimal Assistance Areas Needing Wash/Dry Lower Extremities Assistance Comments OT Bathing Comments Pt needing assist to wash and dry her feet. M5 OT- IP IADL's Start: 03/28/25 11:29 Freq: Status: Active Protocol: Document 03/28/25 11:30 [facility] (Rec: 03/28/25 11:40 [facility] Desktop) OT-Instrumental Activities of Daily Living Home Safety Awareness Awareness of Need Good Awareness for Assistance at Home Ability to Problem Able to Problem Solve Solve Emergency Situations Medication Management Medication No Deficits Identified Management Money Management Money Management No Deficits Identified Meal Preparation Meal Preparation Caregiver Provides Assist Printing Roller Handler Printing Roller Handler Caregiver Provides Assist M6 OT- IP Functional Cognition Start: 03/28/25 11:29 Freq: Status: Active Protocol: Document 03/28/25 11:30 [facility] (Rec: 03/28/25 11:40 [facility] Desktop) Cognitive Factors Limiting Selfcare Function Cognitive Ability Level of Alertness Alert Patient Orientation Name,Age,Birthday,Month,Date,Year,Day of Week,Place, Situation Attention Span Capable of Focused Attention,Capable of Sustained Ability Attention Ability to Follow Able to Follow One Step Commands Commands Cognitive Comments Cognitive Assessment Pt able to follow her hip precautions for ADL and Comments mobility needs. OT- Vision and Hearing OT- Hearing Assessment OT- Hearing WFL Assessment OT- Vision Assessment Visual Acuity Glasses All The Time Visual Attentiveness WFL Occular Pursuits WFL M7 OT- IP Mobility and Balance Start: 03/28/25 11:29 Freq: Status: Active Protocol: Document 03/28/25 11:30 [facility] (Rec: 03/28/25 11:40 [facility] Desktop) OT-Transfer Assessment Sit to and From Stand Sit to and from Standby Assistance Stand Transfers Transfer Ability Standby Assistance Technique Transfer Destination Chair,Shower Stall,Toilet Transfer Technique Stand Step Pivot Devices Transfer Assistive Gait Belt,Front Wheeled Walker Devices Comments Mobility Comments SBA to stand and walk in the room with the FWW. OT- Balance Assessment Sitting Balance and Reactions Static Sitting Normal Balance Ability Dynamic Sitting Normal Balance Ability Standing Balance and Reactions Static Standing Good Balance Ability Dynamic Standing Fair Balance Ability M8 OT- IP Objective Assessments Start: 03/28/25 11:29 Freq: Status: Active Protocol: Document 03/28/25 11:30 [facility] (Rec: 03/28/25 11:40 [facility] Desktop) OT Gross Range of Motion Upper Extremity Range of Motion Assessment Within Functional Limits OT Strength Upper Extremity Strength Assessment Within Functional Limits M9 OT- IP Assessment and Plan Start: 03/28/25 11:29 Freq: Status: Active Protocol: Document 03/28/25 11:30 [facility] (Rec: 03/28/25 11:40 [facility] Desktop) OT Summary Assessment and Plan Potential Rehabilitation Excellent Potential Analytic Complexity Low at Evaluation Summary OT Impairments Pain,Balance,Functional Mobility,Dressing,Toileting, Bathing,Toilet Transfers,Shower Transfers Progress Towards Progressing Toward Goals Goals Assessment Summary Pt low complexity and main barriers are pain, steps, will benefit from assist with showering at this time. Pt to go home with her sister to assist and go to outpt PT. Goals Dressing Goal Independent Toileting Goal Independent Bathing Goal Standby Assistance Toilet Transfer Goal Independent Shower Transfer Goal Standby Assistance Days to Meet Goals 5 Frequency of Treatment Other frequency 5x/week Treatment Plan OT Treatment Plan ADL Training,Functional Mobility,Patient/Family Education,Discharge Planning Discharge Recommendations OT Discharge Home with Assistance,Outpatient PT Recommendations Transportation Needs Private Vehicle at Discharge
[2025-03-28] MEDS: MULTIVITAMIN 1 TABLET 1 TAB PO (09:38)
[2025-03-28 10:31] VITALS: BP 104/48; PULSE 78; RESP 18; O2SAT 97
--- NOTE | 2025-03-28 10:47 | PT.IIE ---
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) Surgery Performed Operation Date: 03/27/25 13:45 Actual Procedures p Total Hip Arthroplasty/Anterior Approach(Left) - Keily Garcia MD Surgical History (Last Updated 03/18/25 @ 13:06 by Nilsa Guerra RN) History of lumpectomy History of surgery on arm (09/2016) History of total abdominal hysterectomy and bilateral salpingo-oophorectomy History of total right hip replacement (2017) Hx of colonoscopy Hx of cornea transplant (2001) Hx of eye surgery S/P thyroid biopsy Status post extracapsular cataract extraction of left eye Status post hysterectomy Status post knee surgery Medical History (Last Updated 10/08/24 @ 13:06 by Dixie Carvalho MD) Abnormal Pap smear of cervix (2015) Allergic rhinitis Breast cancer (1998) Elevated liver enzymes Fatty liver (2018) History of left breast cancer (1998) HPV in female (2015) Low back strain Mixed hyperlipidemia (05/2020) Normal colonoscopy Oral herpes Osteoarthritis Osteopenia (2014) Osteoporosis Seasonal allergies Serum phosphate elevated Thyroid nodule Wrist fracture, right (09/2016) Physical Therapy Inpatient Evaluation/Re-Eval M1 PT/OT-IP Prior Functional Status Start: 03/28/25 08:45 Freq: NEEDED Status: Active Protocol: Document 03/28/25 08:55 MB (Rec: 03/28/25 09:44 MB Desktop) Medical Review Prior Functional Status Medical History Yes Reviewed Communication WNLs Mobility and Gait I, takes care of her mother who has low vision. Her sister is arriving to assist her and her mother at d/c. Activities of Daily I Living and IADL's Prior Functional I, drives, is caregiver for her mother Level (Other details ) Social History Household Members family Living Arrangements House Number of Floors ( One Floor Floors) Number of Stairs To 2 steps with grab bars on both sides she can reach to Enter/Railing? enter home Home Environment Standard Height Toilet,Walk in Shower Home Equipment Front Wheel Walker,Straight Cane,Shower Seat with Backrest Employment Status Retired M2 PT-IP Current Condition Start: 03/28/25 08:45 Freq: NEEDED Status: Active Protocol: Document 03/28/25 08:55 MB (Rec: 03/28/25 10:47 MB Desktop) Physical Therapy Current Condition Current Condition Evaluation Date 03/28/25 Treatment Diagnosis L DANIKA M3 PT-IP Subjective Start: 03/28/25 08:45 Freq: NEEDED Status: Active Protocol: Document 03/28/25 08:55 MB (Rec: 03/28/25 10:47 MB Desktop) Therapy Pain Assessment Pain When Pain Assessed At Rest Pain Present Pain Present Pain Reported Location Left Hip Intensity 4 Scale Used Numeric (0 - 10) M4 PT-IP Mobility and Gait Start: 03/28/25 08:45 Freq: NEEDED Status: Active Protocol: Document 03/28/25 08:55 MB (Rec: 03/28/25 10:47 MB Desktop) PT-Bed Mobility Assessment Rolling Level of Assist Standby Assistance Supine to Sit Supine to Sit Standby Assistance Scooting Scooting to Edge of Standby Assistance Bed Scooting Up and Down Standby Assistance in Bed PT-Transfer Assessment Sit to and From Stand Sit to and from Standby Assistance Stand Equipment Transfer Assistive Gait Belt,Front Wheeled Walker Device Transfers Transfer Destination Chair Transfer Technique Ambulation Transfer Ability Level of Assist Standby Assistance Gait Assessment Gait Gait Assistance Standby Assistance Required: Distance (Feet) 100 Able to Maintain Yes Weight Bearing Status During Gait Assistive Devices Assistive Device Gait Belt,Front Wheeled Walker Gait Deviations General Gait Pattern Antalgic,Decreased Stride Length,Decreased Feet Clearance,Flexed Trunk,Step-to Gait Factors Limiting Gait Function Factors Limiting Limited Range of Motion,Pain,Poor Balance,Poor Safety Gait Function Awareness Stair Climbing Assessment Evaluation Level of Assist On Standby Assistance Stairs Devices Stair Climbing Left Railing,Right Railing Assistive Devices Technique/Endurance Stair Climbing Ascend and Descend Direction Stair Climbing Step to Step Technique Number of Steps 2 Climbed Query Text: Stair Climbing Set # 1 Repetitions (reps) Comments Stair Climbing Cues to step up with good foot first and down with sore Comments leg first, B hand rail use PT-Balance Assessment Sitting Balance and Reactions Static Sitting Good Balance Ability Dynamic Sitting Good Balance Ability Standing Balance and Reactions Static Standing Good Balance Ability Dynamic Standing Good Balance Ability Device Used RW M5 PT-IP Objective Assessments Start: 03/28/25 08:45 Freq: NEEDED Status: Active Protocol: Document 03/28/25 08:55 MB (Rec: 03/28/25 10:47 MB Desktop) Orientation Orientation/Cognition Level of Alertness Alert Orientation Name,Birthday Language Function No Deficits Noted Ability Safety Awareness Understands Safety Issues Memory Description No Deficits Noted Gross Range of Motion Upper Extremity ROM Impairments Defer to OT Lower Extremity ROM Assessment Left Impaired Strength Lower Extremity Strength Assessment Left Impaired Comments Strength Comments ROM and MMT deferred LLE and foot and knee are functional Coordination Assessment Gross Coordination Gross Coordination Impaired Sensation Assessment Comments Sensation Comments NT Muscle Tone Muscle Tone WNL Yes M6 PT-IP Treatment Start: 03/28/25 08:45 Freq: NEEDED Status: Active Protocol: Document 03/28/25 08:55 MB (Rec: 03/28/25 10:47 MB Desktop) Physical Therapy Treatment Exercises Exercises Ankle Pumps,Gluteal Sets,Quad Sets,Heel Slides Education Education Provided Precautions,Weight Bearing Status,Safety M7 PT-IP Assessment and Plan Start: 03/28/25 08:45 Freq: NEEDED Status: Active Protocol: Document 03/28/25 08:55 MB (Rec: 03/28/25 10:47 MB Desktop) PT Summary Assessment and Plan Potential Rehabilitation Good Potential Status of Condition Evolving at Evaluation Summary Impairments Pain,ROM,Strength,Balance,Coordination,Bed Mobility, Transfers,Gait,Activity Tolerance Assessment Summary Pt is a 74 y/o female adm for L DANIKA. Pt mobilizes well today and her sister will pick her up. She has HEP from OPPT pre-op and she is SBA for bed mobility, transfers , gait and stair training today with her RW. Frequency of Treatment Frequency Of Discharge Treatment Precautions Other Precautions No hyperextension left hip Weight Bearing Status Weight Bearing Weight Bear as Tolerated Status Recommendations To Nursing Amount of Assist Standby Assistance Needed Discharge Recommendations PT Discharge Home with Assistance,Outpatient PT Recommendations Transportation Needs Private Vehicle at Discharge
--- NOTE | 2025-03-28 12:48 | CM.DANOTE ---
Initial DCP Assessment Note Pt is a 79 yo female, resident of [place], s/p left DANIKA by Dr Garcia. PCP: Dixie Carvalho Payer: [facility]/[employer] Reviewed chart, pt discussed in multidisciplinary rounds this morning. Therapy has cleared pt for return home w/family to assist and pt has planned for home, DC order from Ortho has already been initiated this morning. Patient cares for her mother at home and has arranged for her sister to stay with she and her mom during her recovery. No barriers identified at this time to patient's safe discharge home w/family to assist; close outpatient f/u recommended. Social work team will plan to follow clinical course closely in case any DC needs or concerns arise. ANN [place] Discharge Planning/Care Management CM Discharge Assessment Start: 03/27/25 13:48 Freq: Status: Active Protocol: Document 03/28/25 12:45 CALLIE (Rec: 03/28/25 12:47 CALLIE [id number]) Discharge Planning Assessment Assigned Discharge ANN Langston Whipper Beater DPOA/Assigned Shanel Hung, sister Designee Name Contact Information [phone] Advance Directives? Yes Advance Directives Yes on File History Provided By Patient,Family Member Prior Living House Arrangements Household Members family Type of Drives own vehicle transporation used prior to admit Independent with ADL Yes 's Is patient alert and Yes oriented? Comment Independent Caregiver for Yes: Cares for her mother Another Patient/Family OP PT Therapy Preference Barriers to No Discharge Comment Cleared by therapy for return home Discharge Plan Home Transportation Family Arrangement Referrals Initiated None needed Additional Contact Info Health Care Proxy/ Johanna Pierce (sister) Next of Kin Health Care Proxy [phone] Phone Number Emergency Contact Adán Daniel (S.O.) Name Emergency Contact [phone] Phone Number Advance Directives? Yes Advance Directives Yes on File Power of Director Of Community Education Yes Power of Director Of Community Education Cayden Kendall (brother)
--- NOTE | 2025-03-28 12:54 | PC.NURSE ---
D/c instructions reviewed with pt. Discussed hip precautions. Discussed precautions to take with narcotics, and discussed stool softeners PRN for constipation. IV removed. Pt exited via w/c with STOREROOM CLERK to private vehicle.
== END 2025-03-28 13:08 | disposition home or self-care (01) ==
LOC: OR 11:41 → AC 13:46
PROVIDERS: PCP Student in an Organized Health Care Education/Training Program; Referring Provider Orthopaedic Surgery; Visit Provider Orthopaedic Surgery
PROC: (CPT 27130; principal; 2025-03-27 13:45)
DX: M87.052 Idiopathic aseptic necrosis of left femur (principal); M16.11 Unilateral primary osteoarthritis, right hip; M25.752 Osteophyte, left hip
CPT/HCPCS: 27130; 36415; 73502; 76000; 85014; 85018; 97161; 97165; 97535; C1776; J0666; J0690; J1100; J1885; J2405; J2704

== ENCOUNTER → 2025-06-11 09:04 | Outpatient (CLI) | payer MEDICARE, OTHER, SELFPAY ==
[2025-03-27 17:48] VITALS: BMI 22.0
[2025-06-11 11:08] LABS: Blood Urea Nitrogen 15 mg/dL (7-17); Calcium 9.0 mg/dL (8.4-10.2); Carbon Dioxide 28 mmol/L (22-32); Chloride 101 mmol/L (98-107); Estimated Glomerular Filt Rate > 60 mL/min (>60); Glucose 94 mg/dL (70-99); HEMOLYSIS < 15 (0-50); Potassium 4.3 mmol/L (3.4-5.1); Sodium 137 mmol/L (137-145)
== END ==
PROVIDERS: PCP Student in an Organized Health Care Education/Training Program; Referring Provider Internal Medicine Endocrinology, Diabetes & Metabolism; Visit Provider Internal Medicine Endocrinology, Diabetes & Metabolism
DX: E83.52 Hypercalcemia (principal)
CPT/HCPCS: 36415; 80048